=== PATIENT | female | born 1990 | race Caucasian/White ===

== ENCOUNTER → 2017-12-07 | Outpatient (CLI) | payer MEDICARE, OTHER ==
[~2017-12-07] MED LIST: ABAT250V; CLEOCIN VAG; Cleocin HCl150 MG PO; DIPH12.5EL MT; GI COCKTAIL PO; HYDR1TAB94 PO; LEVFLO500 PO; LIDO2L PO; Lacri-Lube S.O3.5 GM BOTHEYES; MALARONE; Miralax17 GM PO; NITR100CA PO; NYST100SU PO; Norco 5-325 Ta1 EACH PO; OXCA150; PRED5EL PO; QUET100 PO; TOBDEXOPO BOTHEYES; TOPI25C; Tylenol325 MG PO; WARF7.5 PO; [UNRECOGNIZED DRUG - OTHER] BOTHEYES; [UNRECOGNIZED DRUG - OTHER] BOTHEYES
== END | disposition home or self-care (01) ==
LOC: PLD → LAB SHORT
DX: L30.8 Other specified dermatitis (principal)
CPT/HCPCS: 88305; 88313

== ENCOUNTER 2018-01-19 21:52 | Emergency (ER) | payer MEDICARE, OTHER ==
[~2018-01-19] VITALS: Ht 170.2 cm; Wt 104.3 kg
[~2018-01-19 21:52] MED LIST changes: -Cleocin HCl150 MG PO; -NITR100CA PO
[2018-01-19 22:45] LABS: BASOPHILS ABSOLUTE AUTO 0.01 K/mm3 (0.00-0.23); BASOPHILS PERCENT AUTO 0 % (0-2); EOSINOPHILS PERCENT AUTO 0 % (0-6); Hematocrit 45.5 % (33.0-51.0); Hemoglobin 14.6 g/dL (11.5-16.0); IMMATURE GRAN ABSOLUTE AUTO 0.03 K/mm3 (0.00-0.10); IMMATURE GRAN PERCENT AUTO 0 % (0-1); LYMPHOCYTES ABSOLUTE AUTO 0.89 K/mm3 (0.84-5.20); LYMPHOCYTES PERCENT AUTO 10 % (21-46); MONOCYTES PERCENT AUTO 4 % (4-13); Mean Corpuscular HGB 29.1 pg (26.0-34.0); Mean Corpuscular HGB Conc 32.1 g/dL (31.5-36.5); Mean Corpuscular Volume 91 fL (80-100); Mean Platelet Volume 9.2 fL (9.1-12.4); NEUTROPHILS ABSOLUTE AUTO 7.96 K/mm3 (1.96-9.15); NEUTROPHILS PERCENT AUTO 86 % (41-73); Platelet Count 291 K/mm3 (150-400); RDW Coefficient Variation 14.8 % (11.7-14.2); RDW Standard Deviation 49.2 fL (35.1-46.3); Red Blood Cell Count 5.02 M/mm3 (3.80-5.20); White Blood Cell Count 9.29 K/mm3 (4.00-11.30)
[2018-01-19 22:47] LABS: Influenza A Negative (NEGATIVE); Influenza B Negative (NEGATIVE)
[2018-01-19 23:06] LABS: Alanine Aminotransfer (ALT/SGP 17 U/L (12-78); Albumin, Blood 3.6 g/dL (3.4-5.0); Albumin/Globulin Ratio 0.7 (0.8-1.8); Alk Phos 66 U/L (50-136); Anion Gap 6 mmol/L (6-16); Aspartate Aminotrans (AST/SGOT 17 U/L (12-37); Bilirubin, Total 0.7 mg/dL (0.1-1.0); Blood Urea Nitrogen 7 mg/dL (8-24); Bun/Creatinine Ratio 11.3 (12.0-20.0); CO2, Blood 28 mmol/L (21-32); Calcium, Blood 8.8 mg/dL (8.5-10.1); Chloride, Blood 99 mmol/L (98-108); Creatinine, Blood 0.62 mg/dL (0.40-1.00); Globulin, Blood 5.4 g/dL (2.2-4.0); Glomerular Filtration Rate >60 (60-); Glucose, Blood 85 mg/dL (70-99); Potassium, Blood 3.9 mmol/L (3.5-5.5); Sodium, Blood 133 mmol/L (136-145)
[2018-01-20 00:21] LABS: Source, Urine Clean Catch
[2018-01-20 00:25] LABS: Bilirubin, Urine Neg (Neg); Blood, Urine Neg (Neg); Glucose Qualitative, Urine Neg (Neg); Ketones, Urine Neg (Neg); Leukocyte Esterase, Urine 3+ (Neg); Nitrite, Urine Pos (Neg); Protein, Urine Neg (Neg); Urobilinogen, Urine NORM (Normal)
[2018-01-20 00:26] LABS: Appearance, Urine Hazy (Clear); Color, Urine Yellow (P-Yellow)
[2018-01-20 00:30] LABS: Bacteria Many /hpf; Red Blood Cells, Urine Not Seen /hpf (0-2); Squamous Epithelial Cells Rare /hpf (Few); White Blood Cells, Urine 50-100 /hpf (0-5)
[2018-01-20] MEDS ORDERED: NITR100CA PO (00:45)
[2018-05-14] MEDS ORDERED: Cleocin HCl150 MG PO (23:53)
== END 2018-01-20 01:42 | disposition home or self-care (01) ==
LOC: ER 21:52
PROVIDERS: Emergency Medicine
DX: N39.0 Urinary tract infection, site not specified (principal); F31.9 Bipolar disorder, unspecified; F41.9 Anxiety disorder, unspecified; F17.210 Nicotine dependence, cigarettes, uncomplicated; Z88.8 Allergy status to other drugs, medicaments and biological substances; Z88.0 Allergy status to penicillin; Z88.1 Allergy status to other antibiotic agents; Z88.2 Allergy status to sulfonamides; Z79.01 Long term (current) use of anticoagulants; Z79.899 Other long term (current) drug therapy; Z79.52 Long term (current) use of systemic steroids; Z86.711 Personal history of pulmonary embolism; Z86.718 Personal history of other venous thrombosis and embolism
CPT/HCPCS: 36415; 71046; 80053; 81001; 81025; 85025; 87077; 87086; 87186; 87804; 99283; J7030

== ENCOUNTER → 2018-01-24 | Outpatient (CLI) | payer MEDICARE, OTHER ==
[~2018-01-24] MED LIST changes: +Cleocin HCl150 MG PO; +NITR100CA PO
[2018-01-26 11:26] LABS: HPV Genotype 16 Not Detected (NOTDET); HPV Genotype 18 Not Detected (NOTDET)
[2018-02-01 12:42] LABS: HPV High Risk Other Detected (NOTDET)
== END | disposition home or self-care (01) ==
LOC: OLS 15:50
PROVIDERS: Obstetrics & Gynecology Gynecology
DX: Z12.4 Encounter for screening for malignant neoplasm of cervix (principal); R87.810 Cervical high risk human papillomavirus (HPV) DNA test positive; R87.89 Other abnormal findings in specimens from female genital organs
CPT/HCPCS: 87624; G0123

== ENCOUNTER → 2019-02-15 | Outpatient (CLI) | payer MEDICARE ==
[~2019-02-15] MED LIST changes: +BUPR150ER PO; +CLON.1 PO; +FOLI1 PO; +METTREX2.5 PO; +PRED5 PO
== END | disposition home or self-care (01) ==
LOC: LAB 10:07 → LAB SHORT 10:07
DX: N75.1 Abscess of Bartholin's gland (principal)
CPT/HCPCS: 87070; 87205

== ENCOUNTER 2022-09-28 22:40 | Emergency (ER) | payer OTHER ==
[~2022-09-28] VITALS: Ht 170.2 cm; Wt 86.2 kg
[2022-09-29 02:58] LABS: International Normalized Ratio 1.08; Prothrombin Time Results 11.3 Sec (9.7-11.5)
[2022-09-29] MEDS ORDERED: IMITREX25 MG PO (06:20)
== END 2022-09-29 06:34 | disposition home or self-care (01) ==
LOC: ER 22:40
PROVIDERS: Student in an Organized Health Care Education/Training Program
DX: R51.9 Headache, unspecified (principal); F17.210 Nicotine dependence, cigarettes, uncomplicated; Z88.8 Allergy status to other drugs, medicaments and biological substances; Z88.0 Allergy status to penicillin; Z88.1 Allergy status to other antibiotic agents; Z88.2 Allergy status to sulfonamides; Z79.899 Other long term (current) drug therapy; Z79.01 Long term (current) use of anticoagulants; Z86.711 Personal history of pulmonary embolism; Z86.718 Personal history of other venous thrombosis and embolism
CPT/HCPCS: 36415; 70470; 85610; J1790; J1885; J2765; Q9967

== ENCOUNTER → 2024-09-25 | Outpatient (CLI) | payer OTHER ==
[~2024-09-25] MED LIST changes: +IMITREX25 MG PO
[2024-09-27 22:39] LABS: APTIMA MEDIA TYPE Unisex Swab; C. TRACHOMATIS BY TMA Negative (Negative); N. GONORRHOEAE BY TMA Negative (Negative); SPECIMEN SOURCE Cervical
== END ==
LOC: LAB 11:22 → LAB SHORT 11:22
PROVIDERS: Advanced Practice Midwife
DX: Z11.3 Encounter for screening for infections with a predominantly sexual mode of transmission (principal)
CPT/HCPCS: 87491; 87591

== ENCOUNTER → 2024-12-12 | Outpatient (CLI) | payer OTHER | LOC: LAB SHORT 18:54 → LAB 18:54 | DX: S81.802A Unspecified open wound, left lower leg, initial encounter (principal) | CPT/HCPCS: 87070; 87075; 87205 ==

== ENCOUNTER 2025-01-13 02:11 | Day surgery (SDC) | payer OTHER ==
[2025-01-13] MEDS ORDERED: Lidocaine HCl 4% Cream 5 GM ONE (08:23)
== END 2025-01-13 23:00 | disposition home or self-care (01) ==
LOC: WOUND 02:11
DX: I87.332 Chronic venous hypertension (idiopathic) with ulcer and inflammation of left lower extremity (principal); L97.822 Non-pressure chronic ulcer of other part of left lower leg with fat layer exposed; I87.2 Venous insufficiency (chronic) (peripheral); I73.9 Peripheral vascular disease, unspecified; M06.9 Rheumatoid arthritis, unspecified; K21.9 Gastro-esophageal reflux disease without esophagitis; F17.200 Nicotine dependence, unspecified, uncomplicated; Z88.0 Allergy status to penicillin; Z88.2 Allergy status to sulfonamides; Z88.1 Allergy status to other antibiotic agents; Z88.8 Allergy status to other drugs, medicaments and biological substances; F31.9 Bipolar disorder, unspecified
CPT/HCPCS: A6213; A9270; G0463

== ENCOUNTER 2025-01-20 01:52 | Day surgery (SDC) | payer OTHER ==
[2025-01-20] MEDS ORDERED: Lidocaine HCl 4% Cream 5 GM ONE (14:40)
== END 2025-01-20 23:23 | disposition home or self-care (01) ==
LOC: WOUND 01:52
DX: I87.312 Chronic venous hypertension (idiopathic) with ulcer of left lower extremity (principal); L97.822 Non-pressure chronic ulcer of other part of left lower leg with fat layer exposed; I87.2 Venous insufficiency (chronic) (peripheral); I73.9 Peripheral vascular disease, unspecified; Z72.0 Tobacco use
CPT/HCPCS: A6213; A9270

== ENCOUNTER 2025-01-29 08:00 | Day surgery (SDC) | payer OTHER ==
[2025-01-29] MEDS ORDERED: Lidocaine HCl 4% Cream 5 GM ONE (08:44)
== END 2025-01-29 23:00 | disposition home or self-care (01) ==
LOC: WOUND 08:00
DX: I87.332 Chronic venous hypertension (idiopathic) with ulcer and inflammation of left lower extremity (principal); L97.823 Non-pressure chronic ulcer of other part of left lower leg with necrosis of muscle; I74.3 Embolism and thrombosis of arteries of the lower extremities; I87.2 Venous insufficiency (chronic) (peripheral); Z72.0 Tobacco use
CPT/HCPCS: A6213; A9270

== ENCOUNTER 2025-02-05 01:39 | Day surgery (SDC) | payer OTHER ==
[2025-02-05] MEDS ORDERED: Lidocaine HCl 4% Cream 5 GM ONE (10:51)
== END 2025-02-05 23:00 | disposition home or self-care (01) ==
LOC: WOUND 01:39
DX: I87.312 Chronic venous hypertension (idiopathic) with ulcer of left lower extremity (principal); L97.822 Non-pressure chronic ulcer of other part of left lower leg with fat layer exposed; I73.9 Peripheral vascular disease, unspecified; I87.2 Venous insufficiency (chronic) (peripheral); M06.9 Rheumatoid arthritis, unspecified; Z72.0 Tobacco use
CPT/HCPCS: A6213; A9270

== ENCOUNTER → 2025-02-11 | Day surgery (SDC) | payer OTHER ==
[~2025-02-11] MED LIST changes: +Lidocaine HCl 4% Cream 5 GM ONE
== END ==
LOC: WOUND 02:18
DX: I87.312 Chronic venous hypertension (idiopathic) with ulcer of left lower extremity (principal); L97.823 Non-pressure chronic ulcer of other part of left lower leg with necrosis of muscle; I73.9 Peripheral vascular disease, unspecified; I87.2 Venous insufficiency (chronic) (peripheral); Z72.0 Tobacco use
CPT/HCPCS: A6213; A9270

== ENCOUNTER → 2025-02-25 | Day surgery (SDC) | payer OTHER | LOC: WOUND 04:29 | DX: I87.333 Chronic venous hypertension (idiopathic) with ulcer and inflammation of bilateral lower extremity (principal); L97.823 Non-pressure chronic ulcer of other part of left lower leg with necrosis of muscle; I74.3 Embolism and thrombosis of arteries of the lower extremities; I73.9 Peripheral vascular disease, unspecified; I87.2 Venous insufficiency (chronic) (peripheral); Z72.0 Tobacco use | CPT/HCPCS: A6213; A9270 ==

== ENCOUNTER 2025-03-04 03:35 | Day surgery (SDC) | payer OTHER ==
[~2025-03-04 03:35] MED LIST changes: -Lidocaine HCl 4% Cream 5 GM ONE
[2025-03-04] MEDS ORDERED: Lidocaine HCl 4% Cream 5 GM ONE (09:49)
== END 2025-03-04 23:00 | disposition home or self-care (01) ==
LOC: WOUND 03:35
DX: I87.332 Chronic venous hypertension (idiopathic) with ulcer and inflammation of left lower extremity (principal); L97.823 Non-pressure chronic ulcer of other part of left lower leg with necrosis of muscle; I70.248 Atherosclerosis of native arteries of left leg with ulceration of other part of lower leg; I74.3 Embolism and thrombosis of arteries of the lower extremities; I87.2 Venous insufficiency (chronic) (peripheral); Z72.0 Tobacco use
CPT/HCPCS: A6213; A9270

== ENCOUNTER → 2025-03-06 | Outpatient (CLI) | payer OTHER | LOC: LAB SHORT 15:03 → LAB 15:03 | DX: L97.922 Non-pressure chronic ulcer of unspecified part of left lower leg with fat layer exposed (principal) | CPT/HCPCS: 87070; 87075; 87076; 87077; 87185; 87186; 87205 ==

== ENCOUNTER 2025-03-11 03:11 | Day surgery (SDC) | payer OTHER ==
[2025-03-11] MEDS ORDERED: Lidocaine HCl 4% Cream 5 GM ONE ×2 (10:58→11:07)
[2025-03-12] MEDS ORDERED: TRAM50 PO (16:15)
[2025-03-12] MEDS ORDERED: TOBRAMYCIN IV (16:15)
[2025-03-12] MEDS ORDERED: Pentoxifylline400 MG PO (16:17)
== END 2025-03-11 23:38 | disposition home or self-care (01) ==
LOC: WOUND 03:11
DX: I70.248 Atherosclerosis of native arteries of left leg with ulceration of other part of lower leg (principal); I87.332 Chronic venous hypertension (idiopathic) with ulcer and inflammation of left lower extremity; L97.823 Non-pressure chronic ulcer of other part of left lower leg with necrosis of muscle; I87.2 Venous insufficiency (chronic) (peripheral); Z86.718 Personal history of other venous thrombosis and embolism; Z88.0 Allergy status to penicillin; Z88.1 Allergy status to other antibiotic agents; Z88.2 Allergy status to sulfonamides
CPT/HCPCS: A6213; A9270

== ENCOUNTER 2025-03-12 02:09 | Day surgery (SDC) | payer OTHER ==
[2025-03-12 16:10] VITALS: BP 116/68
[2025-03-12] MEDS ORDERED: TRAM50 PO (16:15)
[2025-03-12] MEDS ORDERED: TOBRAMYCIN IV (16:15)
[2025-03-12] MEDS ORDERED: Pentoxifylline400 MG PO (16:17)
== END 2025-03-12 16:40 | disposition home or self-care (01) ==
LOC: ATC 02:09
DX: I87.332 Chronic venous hypertension (idiopathic) with ulcer and inflammation of left lower extremity (principal); L97.823 Non-pressure chronic ulcer of other part of left lower leg with necrosis of muscle; I87.2 Venous insufficiency (chronic) (peripheral); Z88.0 Allergy status to penicillin; Z88.2 Allergy status to sulfonamides; Z88.8 Allergy status to other drugs, medicaments and biological substances; Z79.01 Long term (current) use of anticoagulants; Z79.899 Other long term (current) drug therapy
CPT/HCPCS: 96365; J3260

== ENCOUNTER 2025-03-13 01:22 | Day surgery (SDC) | payer OTHER ==
[~2025-03-13 01:22] MED LIST changes: +Pentoxifylline400 MG PO; +TOBRAMYCIN IV; +TRAM50 PO
[2025-03-13 15:36] VITALS: BP 131/80
== END 2025-03-13 16:08 | disposition home or self-care (01) ==
LOC: ATC 01:22
DX: I87.322 Chronic venous hypertension (idiopathic) with inflammation of left lower extremity (principal); L97.823 Non-pressure chronic ulcer of other part of left lower leg with necrosis of muscle
CPT/HCPCS: 96365; J3260

== ENCOUNTER 2025-03-14 02:19 | Day surgery (SDC) | payer OTHER ==
[~2025-03-14] VITALS: Ht 170.2 cm; Wt 106.8 kg
[2025-03-14 15:40] VITALS: BP 114/77
[2025-03-14] MEDS ORDERED: TOBRAMYCIN SULFATE IV SCH (16:00)
[2025-03-14] MEDS ORDERED: NS IV SCH (16:00)
== END 2025-03-14 17:07 | disposition home or self-care (01) ==
LOC: ATC 02:19
DX: I87.322 Chronic venous hypertension (idiopathic) with inflammation of left lower extremity (principal); L97.823 Non-pressure chronic ulcer of other part of left lower leg with necrosis of muscle; I70.202 Unspecified atherosclerosis of native arteries of extremities, left leg; Z72.0 Tobacco use; Z88.0 Allergy status to penicillin; Z88.2 Allergy status to sulfonamides; Z88.8 Allergy status to other drugs, medicaments and biological substances
CPT/HCPCS: 96365; J3260

== ENCOUNTER 2025-03-15 04:40 | Day surgery (SDC) | payer OTHER ==
[~2025-03-15] VITALS: Ht 170.2 cm; Wt 106.8 kg
[2025-03-15 17:07] LABS: Creatinine, Blood 0.57 mg/dL (0.40-1.00); Tobramycin, Trough <0.3 ug/mL (0.0-1.9)
[2025-03-15] MEDS ORDERED: TOBRAMYCIN SULFATE IV SCH (17:20)
[2025-03-15] MEDS ORDERED: NS IV SCH (17:20)
[2025-03-15 17:39] VITALS: BP 123/75
== END 2025-03-15 23:00 | disposition home or self-care (01) ==
LOC: ATC 04:40
PROVIDERS: Surgery
DX: I87.322 Chronic venous hypertension (idiopathic) with inflammation of left lower extremity (principal); L97.823 Non-pressure chronic ulcer of other part of left lower leg with necrosis of muscle; I73.9 Peripheral vascular disease, unspecified; Z72.0 Tobacco use; Z88.0 Allergy status to penicillin; Z88.2 Allergy status to sulfonamides; Z88.8 Allergy status to other drugs, medicaments and biological substances
CPT/HCPCS: 80200; 82565; 96374; J3260

== ENCOUNTER 2025-03-16 00:27 | Day surgery (SDC) | payer OTHER ==
[2025-03-16] MEDS ORDERED: TOBRAMYCIN SULFATE IV SCH (06:00)
[2025-03-16] MEDS ORDERED: NS IV SCH (06:00)
[2025-03-16 16:13] VITALS: BP 127/83
== END 2025-03-16 16:45 | disposition home or self-care (01) ==
LOC: ATC 00:27
DX: L97.823 Non-pressure chronic ulcer of other part of left lower leg with necrosis of muscle (principal); I87.322 Chronic venous hypertension (idiopathic) with inflammation of left lower extremity; Z79.01 Long term (current) use of anticoagulants; Z79.52 Long term (current) use of systemic steroids; Z79.899 Other long term (current) drug therapy; Z88.0 Allergy status to penicillin; Z88.1 Allergy status to other antibiotic agents; Z88.2 Allergy status to sulfonamides; Z88.8 Allergy status to other drugs, medicaments and biological substances
CPT/HCPCS: 96365; J3260

== ENCOUNTER 2025-03-17 04:19 | Day surgery (SDC) | payer OTHER ==
[2025-03-17] MEDS ORDERED: TOBRAMYCIN SULFATE IV SCH (06:00)
[2025-03-17] MEDS ORDERED: NS IV SCH (06:00)
[2025-03-17 15:44] VITALS: BP 129/80
== END 2025-03-17 16:22 | disposition home or self-care (01) ==
LOC: ATC 04:19
DX: I87.332 Chronic venous hypertension (idiopathic) with ulcer and inflammation of left lower extremity (principal); L97.823 Non-pressure chronic ulcer of other part of left lower leg with necrosis of muscle; L97.822 Non-pressure chronic ulcer of other part of left lower leg with fat layer exposed; Z88.0 Allergy status to penicillin; Z88.2 Allergy status to sulfonamides; Z88.8 Allergy status to other drugs, medicaments and biological substances; Z79.01 Long term (current) use of anticoagulants; Z79.899 Other long term (current) drug therapy
CPT/HCPCS: 96365; J3260

== ENCOUNTER 2025-03-18 02:41 | Day surgery (SDC) | payer OTHER ==
[2025-03-18 16:28] VITALS: BP 127/78
[2025-03-18 17:05] LABS: Creatinine, Blood 0.83 mg/dL (0.40-1.00); Tobramycin, Trough <0.3 ug/mL (0.0-1.9)
[2025-03-18] MEDS ORDERED: TOBRAMYCIN SULFATE IV SCH (17:15)
[2025-03-18] MEDS ORDERED: NS IV SCH (17:15)
== END 2025-03-18 18:14 | disposition home or self-care (01) ==
LOC: ATC 02:41
PROVIDERS: Surgery
DX: I87.332 Chronic venous hypertension (idiopathic) with ulcer and inflammation of left lower extremity (principal); L97.823 Non-pressure chronic ulcer of other part of left lower leg with necrosis of muscle; I87.2 Venous insufficiency (chronic) (peripheral); I87.322 Chronic venous hypertension (idiopathic) with inflammation of left lower extremity; I70.248 Atherosclerosis of native arteries of left leg with ulceration of other part of lower leg; Z79.01 Long term (current) use of anticoagulants; Z79.52 Long term (current) use of systemic steroids; Z79.899 Other long term (current) drug therapy; Z88.0 Allergy status to penicillin; Z88.1 Allergy status to other antibiotic agents; Z88.2 Allergy status to sulfonamides; Z88.8 Allergy status to other drugs, medicaments and biological substances; Z95.820 Peripheral vascular angioplasty status with implants and grafts; Z72.0 Tobacco use
CPT/HCPCS: 80200; 82565; 96365; A6213; A9270; J3260

== ENCOUNTER 2025-03-19 02:33 | Day surgery (SDC) | payer OTHER ==
[2025-03-19] MEDS ORDERED: NS IV SCH (06:00)
[2025-03-19] MEDS ORDERED: TOBRAMYCIN SULFATE IV SCH (06:00)
[2025-03-19 15:47] VITALS: BP 119/80
== END 2025-03-19 16:29 | disposition home or self-care (01) ==
LOC: ATC 02:33
DX: I87.322 Chronic venous hypertension (idiopathic) with inflammation of left lower extremity (principal); L97.823 Non-pressure chronic ulcer of other part of left lower leg with necrosis of muscle; I73.9 Peripheral vascular disease, unspecified; Z72.0 Tobacco use; Z88.0 Allergy status to penicillin; Z88.2 Allergy status to sulfonamides; Z88.1 Allergy status to other antibiotic agents; Z88.8 Allergy status to other drugs, medicaments and biological substances
CPT/HCPCS: 96365; J3260

== ENCOUNTER 2025-03-20 02:17 | Day surgery (SDC) | payer OTHER ==
[2025-03-20] MEDS ORDERED: NS IV SCH (06:00)
[2025-03-20] MEDS ORDERED: TOBRAMYCIN SULFATE IV SCH (06:00)
[2025-03-20 15:32] VITALS: BP 132/98
== END 2025-03-20 16:09 | disposition home or self-care (01) ==
LOC: ATC 02:17
DX: I87.332 Chronic venous hypertension (idiopathic) with ulcer and inflammation of left lower extremity (principal); L97.823 Non-pressure chronic ulcer of other part of left lower leg with necrosis of muscle; I70.248 Atherosclerosis of native arteries of left leg with ulceration of other part of lower leg; Z88.0 Allergy status to penicillin; Z88.2 Allergy status to sulfonamides; Z88.1 Allergy status to other antibiotic agents; Z88.8 Allergy status to other drugs, medicaments and biological substances; Z79.01 Long term (current) use of anticoagulants; Z79.899 Other long term (current) drug therapy
CPT/HCPCS: 96365; J3260

== ENCOUNTER 2025-03-21 03:52 | Day surgery (SDC) | payer OTHER ==
[~2025-03-21 03:52] MED LIST changes: +NS IV SCH; +TOBRAMYCIN SULFATE IV SCH
[2025-03-21 15:30] VITALS: BP 132/86
== END 2025-03-21 16:05 | disposition home or self-care (01) ==
LOC: ATC 03:52
DX: I87.332 Chronic venous hypertension (idiopathic) with ulcer and inflammation of left lower extremity (principal); L97.823 Non-pressure chronic ulcer of other part of left lower leg with necrosis of muscle; Z88.0 Allergy status to penicillin; Z88.2 Allergy status to sulfonamides; Z88.8 Allergy status to other drugs, medicaments and biological substances; Z79.01 Long term (current) use of anticoagulants; Z79.899 Other long term (current) drug therapy; I70.248 Atherosclerosis of native arteries of left leg with ulceration of other part of lower leg; L97.822 Non-pressure chronic ulcer of other part of left lower leg with fat layer exposed; I74.3 Embolism and thrombosis of arteries of the lower extremities; Z72.0 Tobacco use
CPT/HCPCS: 96365; A6213; A9270; J3260

== ENCOUNTER 2025-03-25 01:23 | Day surgery (SDC) | payer OTHER ==
[~2025-03-25 01:23] MED LIST changes: -NS IV SCH; -TOBRAMYCIN SULFATE IV SCH
== END 2025-03-25 23:00 | disposition home or self-care (01) ==
LOC: HBO 01:23
DX: I87.332 Chronic venous hypertension (idiopathic) with ulcer and inflammation of left lower extremity (principal); I70.248 Atherosclerosis of native arteries of left leg with ulceration of other part of lower leg; L97.823 Non-pressure chronic ulcer of other part of left lower leg with necrosis of muscle; I74.3 Embolism and thrombosis of arteries of the lower extremities; I87.2 Venous insufficiency (chronic) (peripheral); Z72.0 Tobacco use; Z88.0 Allergy status to penicillin; Z88.1 Allergy status to other antibiotic agents; Z88.2 Allergy status to sulfonamides; Z88.8 Allergy status to other drugs, medicaments and biological substances
CPT/HCPCS: G0277

== ENCOUNTER 2025-03-25 01:25 | Day surgery (SDC) | payer OTHER ==
[2025-03-25] MEDS ORDERED: NS IV SCH (07:00)
[2025-03-25] MEDS ORDERED: TOBRAMYCIN SULFATE IV SCH (07:00)
[2025-03-25 17:16] VITALS: BP 120/86
== END 2025-03-25 17:55 | disposition home or self-care (01) ==
LOC: ATC 01:25
DX: I87.332 Chronic venous hypertension (idiopathic) with ulcer and inflammation of left lower extremity (principal); I70.248 Atherosclerosis of native arteries of left leg with ulceration of other part of lower leg; L97.823 Non-pressure chronic ulcer of other part of left lower leg with necrosis of muscle; L97.822 Non-pressure chronic ulcer of other part of left lower leg with fat layer exposed
CPT/HCPCS: 96365; J3260

== ENCOUNTER 2025-03-26 06:59 | Day surgery (SDC) | payer OTHER | END 2025-03-26 23:00 | disposition home or self-care (01) | LOC: HBO 06:59 | DX: I70.248 Atherosclerosis of native arteries of left leg with ulceration of other part of lower leg (principal); I87.312 Chronic venous hypertension (idiopathic) with ulcer of left lower extremity; L97.823 Non-pressure chronic ulcer of other part of left lower leg with necrosis of muscle; I87.2 Venous insufficiency (chronic) (peripheral); Z72.0 Tobacco use | CPT/HCPCS: G0277 ==

== ENCOUNTER 2025-03-26 07:00 | Day surgery (SDC) | payer OTHER ==
[~2025-03-26 07:00] MED LIST changes: +NS IV SCH; +TOBRAMYCIN SULFATE IV SCH
[2025-03-26 16:30] VITALS: BP 137/81
== END 2025-03-26 17:22 | disposition home or self-care (01) ==
LOC: ATC 07:00
DX: I87.322 Chronic venous hypertension (idiopathic) with inflammation of left lower extremity (principal); L97.823 Non-pressure chronic ulcer of other part of left lower leg with necrosis of muscle; Z72.0 Tobacco use
CPT/HCPCS: 96365; C1751; J3260

== ENCOUNTER 2025-04-08 03:47 | Day surgery (SDC) | payer OTHER ==
[~2025-04-08 03:47] MED LIST changes: -NS IV SCH; -TOBRAMYCIN SULFATE IV SCH
== END 2025-04-08 23:03 | disposition home or self-care (01) ==
LOC: HBO 03:47
DX: I70.248 Atherosclerosis of native arteries of left leg with ulceration of other part of lower leg (principal); I87.332 Chronic venous hypertension (idiopathic) with ulcer and inflammation of left lower extremity; L97.823 Non-pressure chronic ulcer of other part of left lower leg with necrosis of muscle; I87.2 Venous insufficiency (chronic) (peripheral); Z86.718 Personal history of other venous thrombosis and embolism; Z72.0 Tobacco use; Z95.820 Peripheral vascular angioplasty status with implants and grafts
CPT/HCPCS: A6213; A9270; G0277

== ENCOUNTER 2025-04-11 02:41 | Day surgery (SDC) | payer OTHER | END 2025-04-11 23:00 | disposition home or self-care (01) | LOC: HBO 02:41 | DX: I70.248 Atherosclerosis of native arteries of left leg with ulceration of other part of lower leg (principal); I87.332 Chronic venous hypertension (idiopathic) with ulcer and inflammation of left lower extremity; L97.823 Non-pressure chronic ulcer of other part of left lower leg with necrosis of muscle; I87.2 Venous insufficiency (chronic) (peripheral); Z72.0 Tobacco use; Z86.718 Personal history of other venous thrombosis and embolism | CPT/HCPCS: G0277 ==

== ENCOUNTER 2025-04-24 03:35 | Day surgery (SDC) | payer OTHER | END 2025-04-24 23:00 | disposition home or self-care (01) | LOC: HBO 03:35 | DX: I70.248 Atherosclerosis of native arteries of left leg with ulceration of other part of lower leg (principal); L97.825 Non-pressure chronic ulcer of other part of left lower leg with muscle involvement without evidence of necrosis; I87.312 Chronic venous hypertension (idiopathic) with ulcer of left lower extremity; I87.322 Chronic venous hypertension (idiopathic) with inflammation of left lower extremity; I74.3 Embolism and thrombosis of arteries of the lower extremities; I87.2 Venous insufficiency (chronic) (peripheral); Z72.0 Tobacco use | CPT/HCPCS: G0277 ==

== ENCOUNTER 2025-05-05 08:00 | Day surgery (SDC) | payer OTHER | END 2025-05-05 23:00 | disposition home or self-care (01) | LOC: HBO 08:00 | DX: I87.312 Chronic venous hypertension (idiopathic) with ulcer of left lower extremity (principal); L97.825 Non-pressure chronic ulcer of other part of left lower leg with muscle involvement without evidence of necrosis; I70.248 Atherosclerosis of native arteries of left leg with ulceration of other part of lower leg; I74.3 Embolism and thrombosis of arteries of the lower extremities; I87.2 Venous insufficiency (chronic) (peripheral); Z72.0 Tobacco use | CPT/HCPCS: G0277 ==

== ENCOUNTER 2025-05-06 02:48 | Day surgery (SDC) | payer OTHER | END 2025-05-06 23:00 | disposition home or self-care (01) | LOC: HBO 02:48 | DX: I70.248 Atherosclerosis of native arteries of left leg with ulceration of other part of lower leg (principal); I87.332 Chronic venous hypertension (idiopathic) with ulcer and inflammation of left lower extremity; L97.825 Non-pressure chronic ulcer of other part of left lower leg with muscle involvement without evidence of necrosis; I87.2 Venous insufficiency (chronic) (peripheral); Z72.0 Tobacco use; Z86.718 Personal history of other venous thrombosis and embolism; Z88.0 Allergy status to penicillin; Z88.1 Allergy status to other antibiotic agents; Z88.2 Allergy status to sulfonamides; Z88.8 Allergy status to other drugs, medicaments and biological substances | CPT/HCPCS: A9270; G0277 ==

== ENCOUNTER 2025-05-06 02:55 | Day surgery (SDC) | payer OTHER ==
[2025-05-06] MEDS ORDERED: Lidocaine HCl 4% Cream 5 GM ONE (10:59)
== END 2025-05-06 23:00 | disposition home or self-care (01) ==
LOC: WOUND 02:55
DX: I70.248 Atherosclerosis of native arteries of left leg with ulceration of other part of lower leg (principal); I87.332 Chronic venous hypertension (idiopathic) with ulcer and inflammation of left lower extremity; L97.825 Non-pressure chronic ulcer of other part of left lower leg with muscle involvement without evidence of necrosis; I87.2 Venous insufficiency (chronic) (peripheral); Z86.718 Personal history of other venous thrombosis and embolism; Z72.0 Tobacco use; Z88.0 Allergy status to penicillin; Z88.1 Allergy status to other antibiotic agents; Z88.2 Allergy status to sulfonamides; Z88.8 Allergy status to other drugs, medicaments and biological substances
CPT/HCPCS: A9270

== ENCOUNTER 2025-05-07 03:13 | Day surgery (SDC) | payer OTHER | END 2025-05-07 23:00 | disposition home or self-care (01) | LOC: HBO 03:13 | DX: I70.248 Atherosclerosis of native arteries of left leg with ulceration of other part of lower leg (principal); I87.312 Chronic venous hypertension (idiopathic) with ulcer of left lower extremity; I87.322 Chronic venous hypertension (idiopathic) with inflammation of left lower extremity; L97.825 Non-pressure chronic ulcer of other part of left lower leg with muscle involvement without evidence of necrosis; I74.3 Embolism and thrombosis of arteries of the lower extremities; I87.2 Venous insufficiency (chronic) (peripheral); Z72.0 Tobacco use | CPT/HCPCS: G0277 ==

== ENCOUNTER 2025-05-12 04:52 | Day surgery (SDC) | payer OTHER | END 2025-05-12 23:00 | disposition home or self-care (01) | LOC: HBO 04:52 | DX: I70.248 Atherosclerosis of native arteries of left leg with ulceration of other part of lower leg (principal); I87.332 Chronic venous hypertension (idiopathic) with ulcer and inflammation of left lower extremity; L97.825 Non-pressure chronic ulcer of other part of left lower leg with muscle involvement without evidence of necrosis; I87.2 Venous insufficiency (chronic) (peripheral); Z86.718 Personal history of other venous thrombosis and embolism; Z72.0 Tobacco use; Z88.0 Allergy status to penicillin; Z88.1 Allergy status to other antibiotic agents; Z88.2 Allergy status to sulfonamides; Z88.8 Allergy status to other drugs, medicaments and biological substances | CPT/HCPCS: G0277 ==

== ENCOUNTER 2025-05-13 04:33 | Day surgery (SDC) | payer OTHER | END 2025-05-13 22:00 | disposition home or self-care (01) | LOC: HBO 04:33 | DX: I70.248 Atherosclerosis of native arteries of left leg with ulceration of other part of lower leg (principal); I87.332 Chronic venous hypertension (idiopathic) with ulcer and inflammation of left lower extremity; L97.825 Non-pressure chronic ulcer of other part of left lower leg with muscle involvement without evidence of necrosis; I87.2 Venous insufficiency (chronic) (peripheral); Z86.718 Personal history of other venous thrombosis and embolism; Z72.0 Tobacco use; I87.333 Chronic venous hypertension (idiopathic) with ulcer and inflammation of bilateral lower extremity; L97.823 Non-pressure chronic ulcer of other part of left lower leg with necrosis of muscle; I74.3 Embolism and thrombosis of arteries of the lower extremities | CPT/HCPCS: A9270; G0277 ==

== ENCOUNTER 2025-05-13 04:46 | Day surgery (SDC) | payer OTHER ==
[2025-05-13] MEDS ORDERED: Lidocaine HCl 4% Cream 5 GM ONE (08:57)
== END 2025-05-13 22:00 | disposition home or self-care (01) ==
LOC: WOUND 04:46
DX: I87.333 Chronic venous hypertension (idiopathic) with ulcer and inflammation of bilateral lower extremity (principal); I70.248 Atherosclerosis of native arteries of left leg with ulceration of other part of lower leg; L97.823 Non-pressure chronic ulcer of other part of left lower leg with necrosis of muscle; I74.3 Embolism and thrombosis of arteries of the lower extremities; I87.2 Venous insufficiency (chronic) (peripheral); Z72.0 Tobacco use
CPT/HCPCS: A9270

== ENCOUNTER 2025-05-14 01:59 | Day surgery (SDC) | payer OTHER | END 2025-05-14 23:00 | disposition home or self-care (01) | LOC: HBO 01:59 | DX: I70.248 Atherosclerosis of native arteries of left leg with ulceration of other part of lower leg (principal); I87.332 Chronic venous hypertension (idiopathic) with ulcer and inflammation of left lower extremity; L97.825 Non-pressure chronic ulcer of other part of left lower leg with muscle involvement without evidence of necrosis; I87.2 Venous insufficiency (chronic) (peripheral); Z86.718 Personal history of other venous thrombosis and embolism; Z72.0 Tobacco use; Z88.0 Allergy status to penicillin; Z88.1 Allergy status to other antibiotic agents; Z88.2 Allergy status to sulfonamides; Z88.8 Allergy status to other drugs, medicaments and biological substances | CPT/HCPCS: G0277 ==

== ENCOUNTER 2025-05-15 01:31 | Day surgery (SDC) | payer OTHER | END 2025-05-15 23:00 | disposition home or self-care (01) | LOC: HBO 01:31 | DX: I87.332 Chronic venous hypertension (idiopathic) with ulcer and inflammation of left lower extremity (principal); L97.825 Non-pressure chronic ulcer of other part of left lower leg with muscle involvement without evidence of necrosis; I70.248 Atherosclerosis of native arteries of left leg with ulceration of other part of lower leg; I74.3 Embolism and thrombosis of arteries of the lower extremities; I87.2 Venous insufficiency (chronic) (peripheral); Z72.0 Tobacco use | CPT/HCPCS: G0277 ==

== ENCOUNTER 2025-05-16 01:45 | Day surgery (SDC) | payer OTHER | END 2025-05-16 23:00 | disposition home or self-care (01) | LOC: HBO 01:45 | DX: I87.332 Chronic venous hypertension (idiopathic) with ulcer and inflammation of left lower extremity (principal); I70.248 Atherosclerosis of native arteries of left leg with ulceration of other part of lower leg; L97.825 Non-pressure chronic ulcer of other part of left lower leg with muscle involvement without evidence of necrosis; I74.3 Embolism and thrombosis of arteries of the lower extremities; I87.2 Venous insufficiency (chronic) (peripheral); Z72.0 Tobacco use | CPT/HCPCS: G0277 ==

== ENCOUNTER 2025-05-20 00:51 | Day surgery (SDC) | payer OTHER | END 2025-05-20 23:00 | disposition home or self-care (01) | LOC: HBO 00:51 | DX: I70.248 Atherosclerosis of native arteries of left leg with ulceration of other part of lower leg (principal); I87.332 Chronic venous hypertension (idiopathic) with ulcer and inflammation of left lower extremity; L97.825 Non-pressure chronic ulcer of other part of left lower leg with muscle involvement without evidence of necrosis; L97.823 Non-pressure chronic ulcer of other part of left lower leg with necrosis of muscle; I87.2 Venous insufficiency (chronic) (peripheral); Z86.718 Personal history of other venous thrombosis and embolism; Z72.0 Tobacco use; Z88.0 Allergy status to penicillin; Z88.1 Allergy status to other antibiotic agents; Z88.2 Allergy status to sulfonamides; Z88.8 Allergy status to other drugs, medicaments and biological substances | CPT/HCPCS: A9270; G0277 ==

== ENCOUNTER 2025-05-20 01:01 | Day surgery (SDC) | payer OTHER ==
[2025-05-20] MEDS ORDERED: Lidocaine HCl 4% Cream 5 GM ONE (08:52)
== END 2025-05-20 23:00 | disposition home or self-care (01) ==
LOC: WOUND 01:01
DX: I70.248 Atherosclerosis of native arteries of left leg with ulceration of other part of lower leg (principal); I87.332 Chronic venous hypertension (idiopathic) with ulcer and inflammation of left lower extremity; L97.823 Non-pressure chronic ulcer of other part of left lower leg with necrosis of muscle; I87.2 Venous insufficiency (chronic) (peripheral); Z86.718 Personal history of other venous thrombosis and embolism; Z72.0 Tobacco use; Z88.0 Allergy status to penicillin; Z88.1 Allergy status to other antibiotic agents; Z88.2 Allergy status to sulfonamides; Z88.8 Allergy status to other drugs, medicaments and biological substances
CPT/HCPCS: A9270

== ENCOUNTER 2025-05-21 03:45 | Day surgery (SDC) | payer OTHER | END 2025-05-21 23:00 | disposition home or self-care (01) | LOC: HBO 03:45 | DX: I70.248 Atherosclerosis of native arteries of left leg with ulceration of other part of lower leg (principal); I87.332 Chronic venous hypertension (idiopathic) with ulcer and inflammation of left lower extremity; L97.825 Non-pressure chronic ulcer of other part of left lower leg with muscle involvement without evidence of necrosis; I87.2 Venous insufficiency (chronic) (peripheral); Z86.718 Personal history of other venous thrombosis and embolism; Z72.0 Tobacco use; Z88.0 Allergy status to penicillin; Z88.1 Allergy status to other antibiotic agents; Z88.2 Allergy status to sulfonamides; Z88.8 Allergy status to other drugs, medicaments and biological substances | CPT/HCPCS: G0277 ==

== ENCOUNTER 2025-05-22 02:19 | Day surgery (SDC) | payer OTHER | END 2025-05-22 23:00 | LOC: HBO 02:19 | DX: I70.248 Atherosclerosis of native arteries of left leg with ulceration of other part of lower leg (principal); I87.332 Chronic venous hypertension (idiopathic) with ulcer and inflammation of left lower extremity; L97.825 Non-pressure chronic ulcer of other part of left lower leg with muscle involvement without evidence of necrosis; I87.2 Venous insufficiency (chronic) (peripheral); Z86.718 Personal history of other venous thrombosis and embolism; Z72.0 Tobacco use | CPT/HCPCS: G0277 ==

== ENCOUNTER 2025-05-23 06:01 | Day surgery (SDC) | payer OTHER | END 2025-05-23 23:00 | disposition home or self-care (01) | LOC: HBO 06:01 | DX: I70.248 Atherosclerosis of native arteries of left leg with ulceration of other part of lower leg (principal); I87.332 Chronic venous hypertension (idiopathic) with ulcer and inflammation of left lower extremity; L97.825 Non-pressure chronic ulcer of other part of left lower leg with muscle involvement without evidence of necrosis; I87.2 Venous insufficiency (chronic) (peripheral); Z86.718 Personal history of other venous thrombosis and embolism; Z72.0 Tobacco use; Z88.0 Allergy status to penicillin; Z88.1 Allergy status to other antibiotic agents; Z88.2 Allergy status to sulfonamides; Z88.8 Allergy status to other drugs, medicaments and biological substances | CPT/HCPCS: G0277 ==

== ENCOUNTER 2025-05-26 00:59 | Day surgery (SDC) | payer OTHER | END 2025-05-26 23:00 | disposition home or self-care (01) | LOC: HBO 00:59 | DX: I87.332 Chronic venous hypertension (idiopathic) with ulcer and inflammation of left lower extremity (principal); I70.248 Atherosclerosis of native arteries of left leg with ulceration of other part of lower leg; L97.825 Non-pressure chronic ulcer of other part of left lower leg with muscle involvement without evidence of necrosis; I74.3 Embolism and thrombosis of arteries of the lower extremities; I87.2 Venous insufficiency (chronic) (peripheral); Z72.0 Tobacco use | CPT/HCPCS: G0277 ==

== ENCOUNTER 2025-05-28 03:05 | Day surgery (SDC) | payer OTHER ==
[2025-05-28] MEDS ORDERED: Lidocaine HCl 4% Cream 5 GM ONE (12:57)
== END 2025-05-28 23:00 | disposition home or self-care (01) ==
LOC: WOUND 03:05
DX: I70.248 Atherosclerosis of native arteries of left leg with ulceration of other part of lower leg (principal); I87.332 Chronic venous hypertension (idiopathic) with ulcer and inflammation of left lower extremity; L97.822 Non-pressure chronic ulcer of other part of left lower leg with fat layer exposed; I87.2 Venous insufficiency (chronic) (peripheral); Z86.718 Personal history of other venous thrombosis and embolism; Z72.0 Tobacco use; Z88.0 Allergy status to penicillin; Z88.1 Allergy status to other antibiotic agents; Z88.2 Allergy status to sulfonamides; Z88.8 Allergy status to other drugs, medicaments and biological substances
CPT/HCPCS: A9270

== ENCOUNTER 2025-05-28 03:10 | Day surgery (SDC) | payer OTHER | END 2025-05-28 23:00 | disposition home or self-care (01) | LOC: HBO 03:10 | DX: I70.248 Atherosclerosis of native arteries of left leg with ulceration of other part of lower leg (principal); I87.332 Chronic venous hypertension (idiopathic) with ulcer and inflammation of left lower extremity; L97.825 Non-pressure chronic ulcer of other part of left lower leg with muscle involvement without evidence of necrosis; I87.2 Venous insufficiency (chronic) (peripheral); Z86.718 Personal history of other venous thrombosis and embolism; Z72.0 Tobacco use; Z88.0 Allergy status to penicillin; Z88.1 Allergy status to other antibiotic agents; Z88.2 Allergy status to sulfonamides; Z88.8 Allergy status to other drugs, medicaments and biological substances; L97.822 Non-pressure chronic ulcer of other part of left lower leg with fat layer exposed | CPT/HCPCS: A9270; G0277 ==

== ENCOUNTER 2025-05-29 03:15 | Day surgery (SDC) | payer OTHER | END 2025-05-29 23:00 | disposition home or self-care (01) | LOC: HBO 03:15 | DX: I70.248 Atherosclerosis of native arteries of left leg with ulceration of other part of lower leg (principal); I87.332 Chronic venous hypertension (idiopathic) with ulcer and inflammation of left lower extremity; L97.825 Non-pressure chronic ulcer of other part of left lower leg with muscle involvement without evidence of necrosis; I87.2 Venous insufficiency (chronic) (peripheral); Z86.718 Personal history of other venous thrombosis and embolism; Z72.0 Tobacco use; Z88.0 Allergy status to penicillin; Z88.1 Allergy status to other antibiotic agents; Z88.2 Allergy status to sulfonamides; Z88.8 Allergy status to other drugs, medicaments and biological substances | CPT/HCPCS: G0277 ==

== ENCOUNTER 2025-05-30 03:11 | Day surgery (SDC) | payer OTHER | END 2025-05-30 23:00 | disposition home or self-care (01) | LOC: HBO 03:11 | DX: I70.248 Atherosclerosis of native arteries of left leg with ulceration of other part of lower leg (principal); I87.332 Chronic venous hypertension (idiopathic) with ulcer and inflammation of left lower extremity; L97.825 Non-pressure chronic ulcer of other part of left lower leg with muscle involvement without evidence of necrosis; I87.2 Venous insufficiency (chronic) (peripheral); Z86.718 Personal history of other venous thrombosis and embolism; Z72.0 Tobacco use; Z88.0 Allergy status to penicillin; Z88.1 Allergy status to other antibiotic agents; Z88.2 Allergy status to sulfonamides; Z88.8 Allergy status to other drugs, medicaments and biological substances | CPT/HCPCS: G0277 ==

== ENCOUNTER 2025-06-02 09:58 | Day surgery (SDC) | payer OTHER ==
[2025-06-02] MEDS ORDERED: Lidocaine HCl 4% Cream 5 GM ONE (12:18)
== END 2025-06-02 23:00 | disposition home or self-care (01) ==
LOC: WOUND 09:58
DX: I87.332 Chronic venous hypertension (idiopathic) with ulcer and inflammation of left lower extremity (principal); L97.823 Non-pressure chronic ulcer of other part of left lower leg with necrosis of muscle; I70.248 Atherosclerosis of native arteries of left leg with ulceration of other part of lower leg; I74.3 Embolism and thrombosis of arteries of the lower extremities; I73.9 Peripheral vascular disease, unspecified; I87.2 Venous insufficiency (chronic) (peripheral); Z72.0 Tobacco use
CPT/HCPCS: A6213; A9270

== ENCOUNTER 2025-06-03 01:14 | Day surgery (SDC) | payer OTHER | END 2025-06-03 23:00 | disposition home or self-care (01) | LOC: HBO 01:14 | DX: I70.248 Atherosclerosis of native arteries of left leg with ulceration of other part of lower leg (principal); I87.332 Chronic venous hypertension (idiopathic) with ulcer and inflammation of left lower extremity; L97.825 Non-pressure chronic ulcer of other part of left lower leg with muscle involvement without evidence of necrosis; I87.2 Venous insufficiency (chronic) (peripheral); Z86.718 Personal history of other venous thrombosis and embolism; Z72.0 Tobacco use; Z88.0 Allergy status to penicillin; Z88.1 Allergy status to other antibiotic agents; Z88.2 Allergy status to sulfonamides; Z88.8 Allergy status to other drugs, medicaments and biological substances | CPT/HCPCS: G0277 ==

== ENCOUNTER 2025-06-05 03:40 | Day surgery (SDC) | payer OTHER | END 2025-06-05 23:00 | disposition home or self-care (01) | LOC: HBO 03:40 | DX: I87.332 Chronic venous hypertension (idiopathic) with ulcer and inflammation of left lower extremity (principal); L97.825 Non-pressure chronic ulcer of other part of left lower leg with muscle involvement without evidence of necrosis; I70.248 Atherosclerosis of native arteries of left leg with ulceration of other part of lower leg; I74.3 Embolism and thrombosis of arteries of the lower extremities; I87.2 Venous insufficiency (chronic) (peripheral); Z72.0 Tobacco use | CPT/HCPCS: G0277 ==

== ENCOUNTER 2025-06-09 00:50 | Day surgery (SDC) | payer OTHER | END 2025-06-09 23:00 | disposition home or self-care (01) | LOC: HBO 00:50 | DX: I70.248 Atherosclerosis of native arteries of left leg with ulceration of other part of lower leg (principal); I87.332 Chronic venous hypertension (idiopathic) with ulcer and inflammation of left lower extremity; L97.825 Non-pressure chronic ulcer of other part of left lower leg with muscle involvement without evidence of necrosis; I87.2 Venous insufficiency (chronic) (peripheral); Z86.718 Personal history of other venous thrombosis and embolism; Z72.0 Tobacco use; Z88.0 Allergy status to penicillin; Z88.1 Allergy status to other antibiotic agents; Z88.2 Allergy status to sulfonamides; Z88.8 Allergy status to other drugs, medicaments and biological substances | CPT/HCPCS: G0277 ==

== ENCOUNTER 2025-06-12 01:47 | Day surgery (SDC) | payer OTHER | END 2025-06-12 23:00 | disposition home or self-care (01) | LOC: HBO 01:47 | DX: I70.248 Atherosclerosis of native arteries of left leg with ulceration of other part of lower leg (principal); I87.332 Chronic venous hypertension (idiopathic) with ulcer and inflammation of left lower extremity; L97.825 Non-pressure chronic ulcer of other part of left lower leg with muscle involvement without evidence of necrosis; I87.2 Venous insufficiency (chronic) (peripheral); Z86.718 Personal history of other venous thrombosis and embolism; Z72.0 Tobacco use; Z88.0 Allergy status to penicillin; Z88.1 Allergy status to other antibiotic agents; Z88.2 Allergy status to sulfonamides; Z88.8 Allergy status to other drugs, medicaments and biological substances | CPT/HCPCS: G0277 ==

== ENCOUNTER 2025-06-16 00:37 | Day surgery (SDC) | payer OTHER | END 2025-06-16 23:00 | disposition home or self-care (01) | LOC: HBO 00:37 | DX: I74.3 Embolism and thrombosis of arteries of the lower extremities (principal); I87.332 Chronic venous hypertension (idiopathic) with ulcer and inflammation of left lower extremity; I70.248 Atherosclerosis of native arteries of left leg with ulceration of other part of lower leg; L97.825 Non-pressure chronic ulcer of other part of left lower leg with muscle involvement without evidence of necrosis; I87.2 Venous insufficiency (chronic) (peripheral); Z72.0 Tobacco use | CPT/HCPCS: G0277 ==

== ENCOUNTER 2025-06-17 04:39 | Day surgery (SDC) | payer OTHER ==
[2025-06-17] MEDS ORDERED: Lidocaine HCl 4% Cream 5 GM ONE (13:00)
== END 2025-06-17 23:00 | disposition home or self-care (01) ==
LOC: WOUND 04:39
DX: I70.248 Atherosclerosis of native arteries of left leg with ulceration of other part of lower leg (principal); L97.825 Non-pressure chronic ulcer of other part of left lower leg with muscle involvement without evidence of necrosis; I87.312 Chronic venous hypertension (idiopathic) with ulcer of left lower extremity; I87.2 Venous insufficiency (chronic) (peripheral); Z72.0 Tobacco use
CPT/HCPCS: A6213; A9270

== ENCOUNTER 2025-06-24 00:58 | Day surgery (SDC) | payer OTHER | END 2025-06-24 23:00 | disposition home or self-care (01) | LOC: HBO 00:58 | DX: I70.248 Atherosclerosis of native arteries of left leg with ulceration of other part of lower leg (principal); I87.332 Chronic venous hypertension (idiopathic) with ulcer and inflammation of left lower extremity; L97.825 Non-pressure chronic ulcer of other part of left lower leg with muscle involvement without evidence of necrosis; I87.2 Venous insufficiency (chronic) (peripheral); Z86.718 Personal history of other venous thrombosis and embolism; Z72.0 Tobacco use; Z88.0 Allergy status to penicillin; Z88.2 Allergy status to sulfonamides; Z88.1 Allergy status to other antibiotic agents; Z88.8 Allergy status to other drugs, medicaments and biological substances | CPT/HCPCS: G0277 ==

== ENCOUNTER 2025-06-25 06:44 | Day surgery (SDC) | payer OTHER | END 2025-06-25 23:00 | disposition home or self-care (01) | LOC: HBO 06:44 | DX: I70.248 Atherosclerosis of native arteries of left leg with ulceration of other part of lower leg (principal); I87.332 Chronic venous hypertension (idiopathic) with ulcer and inflammation of left lower extremity; L97.825 Non-pressure chronic ulcer of other part of left lower leg with muscle involvement without evidence of necrosis; I87.2 Venous insufficiency (chronic) (peripheral); Z86.718 Personal history of other venous thrombosis and embolism; Z72.0 Tobacco use; Z88.0 Allergy status to penicillin; Z88.1 Allergy status to other antibiotic agents; Z88.2 Allergy status to sulfonamides; Z88.8 Allergy status to other drugs, medicaments and biological substances | CPT/HCPCS: G0277 ==

== ENCOUNTER 2025-06-26 02:05 | Day surgery (SDC) | payer OTHER | END 2025-06-26 23:00 | disposition home or self-care (01) | LOC: HBO 02:05 | DX: I74.3 Embolism and thrombosis of arteries of the lower extremities (principal); I87.332 Chronic venous hypertension (idiopathic) with ulcer and inflammation of left lower extremity; L97.825 Non-pressure chronic ulcer of other part of left lower leg with muscle involvement without evidence of necrosis; I70.248 Atherosclerosis of native arteries of left leg with ulceration of other part of lower leg; I87.2 Venous insufficiency (chronic) (peripheral); Z72.0 Tobacco use; D68.61 Antiphospholipid syndrome | CPT/HCPCS: 36415; 85610; G0277 ==

== ENCOUNTER 2025-06-27 00:37 | Day surgery (SDC) | payer OTHER | END 2025-06-27 23:00 | disposition home or self-care (01) | LOC: HBO | DX: I74.3 Embolism and thrombosis of arteries of the lower extremities (principal); I70.248 Atherosclerosis of native arteries of left leg with ulceration of other part of lower leg; L97.825 Non-pressure chronic ulcer of other part of left lower leg with muscle involvement without evidence of necrosis; I87.332 Chronic venous hypertension (idiopathic) with ulcer and inflammation of left lower extremity; I87.2 Venous insufficiency (chronic) (peripheral); Z72.0 Tobacco use | CPT/HCPCS: G0277 ==

== ENCOUNTER 2025-06-27 00:49 | Day surgery (SDC) | payer OTHER ==
[2025-06-27] MEDS ORDERED: Lidocaine HCl 4% Cream 5 GM ONE (12:18)
== END 2025-06-27 23:00 | disposition home or self-care (01) ==
LOC: WOUND
DX: I87.332 Chronic venous hypertension (idiopathic) with ulcer and inflammation of left lower extremity (principal); I70.248 Atherosclerosis of native arteries of left leg with ulceration of other part of lower leg; L97.823 Non-pressure chronic ulcer of other part of left lower leg with necrosis of muscle; I74.3 Embolism and thrombosis of arteries of the lower extremities; I87.2 Venous insufficiency (chronic) (peripheral); M06.9 Rheumatoid arthritis, unspecified; Z72.0 Tobacco use
CPT/HCPCS: A6213; A9270

== ENCOUNTER 2025-07-01 01:05 | Day surgery (SDC) | payer OTHER | END 2025-07-01 23:00 | disposition home or self-care (01) | LOC: HBO 01:05 | DX: I74.3 Embolism and thrombosis of arteries of the lower extremities (principal); I70.248 Atherosclerosis of native arteries of left leg with ulceration of other part of lower leg; I87.332 Chronic venous hypertension (idiopathic) with ulcer and inflammation of left lower extremity; I87.2 Venous insufficiency (chronic) (peripheral); Z72.0 Tobacco use; L97.825 Non-pressure chronic ulcer of other part of left lower leg with muscle involvement without evidence of necrosis; M06.9 Rheumatoid arthritis, unspecified | CPT/HCPCS: A6213; A9270; G0277 ==

== ENCOUNTER 2025-07-01 03:22 | Day surgery (SDC) | payer OTHER ==
[2025-07-01] MEDS ORDERED: Lidocaine HCl 4% Cream 5 GM ONE (13:13)
== END 2025-07-01 23:00 | disposition home or self-care (01) ==
LOC: WOUND 03:22
DX: I70.248 Atherosclerosis of native arteries of left leg with ulceration of other part of lower leg (principal); L97.825 Non-pressure chronic ulcer of other part of left lower leg with muscle involvement without evidence of necrosis; I87.332 Chronic venous hypertension (idiopathic) with ulcer and inflammation of left lower extremity; I87.2 Venous insufficiency (chronic) (peripheral); M06.9 Rheumatoid arthritis, unspecified; Z72.0 Tobacco use
CPT/HCPCS: A6213; A9270

== ENCOUNTER 2025-07-02 04:17 | Day surgery (SDC) | payer OTHER | END 2025-07-02 23:00 | disposition home or self-care (01) | LOC: HBO 04:17 | DX: I74.3 Embolism and thrombosis of arteries of the lower extremities (principal); I70.248 Atherosclerosis of native arteries of left leg with ulceration of other part of lower leg; L97.825 Non-pressure chronic ulcer of other part of left lower leg with muscle involvement without evidence of necrosis; I87.312 Chronic venous hypertension (idiopathic) with ulcer of left lower extremity; I87.2 Venous insufficiency (chronic) (peripheral); Z72.0 Tobacco use | CPT/HCPCS: G0277 ==

== ENCOUNTER 2025-07-03 03:19 | Day surgery (SDC) | payer OTHER ==
[2025-07-04] MEDS ORDERED: CEFEPIME HCL2 G1 IV (14:05)
[2025-07-04] MEDS ORDERED: LORA.5 PO (14:05)
== END 2025-07-03 23:04 | disposition home or self-care (01) ==
LOC: HBO 03:19
DX: I74.3 Embolism and thrombosis of arteries of the lower extremities (principal); I87.332 Chronic venous hypertension (idiopathic) with ulcer and inflammation of left lower extremity; I70.248 Atherosclerosis of native arteries of left leg with ulceration of other part of lower leg; L97.825 Non-pressure chronic ulcer of other part of left lower leg with muscle involvement without evidence of necrosis; I87.2 Venous insufficiency (chronic) (peripheral); Z72.0 Tobacco use
CPT/HCPCS: G0277

== ENCOUNTER 2025-07-04 03:12 | Day surgery (SDC) | payer OTHER ==
[2025-07-04] MEDS ORDERED: LORA.5 PO (14:05)
[2025-07-04] MEDS ORDERED: CEFEPIME HCL2 G1 IV (14:05)
== END 2025-07-04 23:42 | disposition home or self-care (01) ==
LOC: HBO 03:12
DX: I74.3 Embolism and thrombosis of arteries of the lower extremities (principal); I70.248 Atherosclerosis of native arteries of left leg with ulceration of other part of lower leg; L97.825 Non-pressure chronic ulcer of other part of left lower leg with muscle involvement without evidence of necrosis; I87.332 Chronic venous hypertension (idiopathic) with ulcer and inflammation of left lower extremity; I87.2 Venous insufficiency (chronic) (peripheral); Z72.0 Tobacco use
CPT/HCPCS: G0277

== ENCOUNTER 2025-07-04 09:32 | Day surgery (SDC) | payer OTHER ==
[2025-07-04] MEDS ORDERED: Cefepime HCl 2,000 MG in NS 100 ML IV SCH (10:20)
[2025-07-04 11:34] VITALS: BP 141/86
[2025-07-04] MEDS ORDERED: LORA.5 PO (14:05)
[2025-07-04] MEDS ORDERED: CEFEPIME HCL2 G1 IV (14:05)
== END 2025-07-04 14:34 | disposition home or self-care (01) ==
LOC: ATC 09:32
DX: I70.248 Atherosclerosis of native arteries of left leg with ulceration of other part of lower leg (principal); I87.332 Chronic venous hypertension (idiopathic) with ulcer and inflammation of left lower extremity; L97.825 Non-pressure chronic ulcer of other part of left lower leg with muscle involvement without evidence of necrosis; I87.2 Venous insufficiency (chronic) (peripheral); Z86.718 Personal history of other venous thrombosis and embolism; Z72.0 Tobacco use; Z79.01 Long term (current) use of anticoagulants; Z79.52 Long term (current) use of systemic steroids; Z79.899 Other long term (current) drug therapy; Z88.0 Allergy status to penicillin; Z88.1 Allergy status to other antibiotic agents; Z88.2 Allergy status to sulfonamides; Z88.8 Allergy status to other drugs, medicaments and biological substances
CPT/HCPCS: 96365; J0692

== ENCOUNTER 2025-07-05 00:30 | Day surgery (SDC) | payer OTHER ==
[~2025-07-05 00:30] MED LIST changes: +CEFEPIME HCL2 G1 IV; +LORA.5 PO
[2025-07-05] MEDS ORDERED: Cefepime HCl 2,000 MG in NS 100 ML IV SCH (12:10)
[2025-07-05 13:50] VITALS: BP 124/88
== END 2025-07-05 14:28 | disposition home or self-care (01) ==
LOC: ATC 00:30
DX: I87.332 Chronic venous hypertension (idiopathic) with ulcer and inflammation of left lower extremity (principal); I70.248 Atherosclerosis of native arteries of left leg with ulceration of other part of lower leg; L97.825 Non-pressure chronic ulcer of other part of left lower leg with muscle involvement without evidence of necrosis; I87.2 Venous insufficiency (chronic) (peripheral); Z72.0 Tobacco use; Z88.0 Allergy status to penicillin; Z88.1 Allergy status to other antibiotic agents; Z88.2 Allergy status to sulfonamides
CPT/HCPCS: 96365; J0692

== ENCOUNTER 2025-07-06 13:49 | Day surgery (SDC) | payer OTHER ==
[~2025-07-06 13:49] MED LIST changes: +Cefepime HCl 2,000 MG in NS 100 ML IV SCH
[2025-07-06 14:00] VITALS: BP 116/75
== END 2025-07-06 14:28 | disposition home or self-care (01) ==
LOC: ATC 13:49
DX: I87.332 Chronic venous hypertension (idiopathic) with ulcer and inflammation of left lower extremity (principal); L97.823 Non-pressure chronic ulcer of other part of left lower leg with necrosis of muscle; L97.822 Non-pressure chronic ulcer of other part of left lower leg with fat layer exposed; I70.248 Atherosclerosis of native arteries of left leg with ulceration of other part of lower leg; I87.2 Venous insufficiency (chronic) (peripheral); Z72.0 Tobacco use; Z88.0 Allergy status to penicillin; Z88.1 Allergy status to other antibiotic agents; Z88.8 Allergy status to other drugs, medicaments and biological substances; Z79.899 Other long term (current) drug therapy
CPT/HCPCS: 96365; J0692

== ENCOUNTER 2025-07-07 13:37 | Day surgery (SDC) | payer OTHER ==
[2025-07-07 13:40] VITALS: BP 124/74
== END 2025-07-07 14:18 | disposition home or self-care (01) ==
LOC: ATC 13:37
DX: I70.248 Atherosclerosis of native arteries of left leg with ulceration of other part of lower leg (principal); L97.825 Non-pressure chronic ulcer of other part of left lower leg with muscle involvement without evidence of necrosis; L97.822 Non-pressure chronic ulcer of other part of left lower leg with fat layer exposed; I87.332 Chronic venous hypertension (idiopathic) with ulcer and inflammation of left lower extremity; I87.2 Venous insufficiency (chronic) (peripheral); Z72.0 Tobacco use; Z88.0 Allergy status to penicillin; Z88.1 Allergy status to other antibiotic agents; Z88.8 Allergy status to other drugs, medicaments and biological substances; Z88.2 Allergy status to sulfonamides
CPT/HCPCS: 96365; J0692

== ENCOUNTER 2025-07-08 01:15 | Day surgery (SDC) | payer OTHER ==
[~2025-07-08 01:15] MED LIST changes: -Cefepime HCl 2,000 MG in NS 100 ML IV SCH
== END 2025-07-08 23:00 | disposition home or self-care (01) ==
LOC: HBO 01:15
DX: I74.3 Embolism and thrombosis of arteries of the lower extremities (principal); I87.332 Chronic venous hypertension (idiopathic) with ulcer and inflammation of left lower extremity; I70.248 Atherosclerosis of native arteries of left leg with ulceration of other part of lower leg; L97.825 Non-pressure chronic ulcer of other part of left lower leg with muscle involvement without evidence of necrosis; I87.2 Venous insufficiency (chronic) (peripheral); M06.9 Rheumatoid arthritis, unspecified; L97.822 Non-pressure chronic ulcer of other part of left lower leg with fat layer exposed; Z72.0 Tobacco use; Z88.0 Allergy status to penicillin
CPT/HCPCS: 96365; A6213; A9270; G0277; J0692

== ENCOUNTER 2025-07-08 01:28 | Day surgery (SDC) | payer OTHER ==
[2025-07-08] MEDS ORDERED: Lidocaine HCl 4% Cream 5 GM ONE (12:43)
== END 2025-07-08 23:00 | disposition home or self-care (01) ==
LOC: WOUND 01:28
DX: I70.248 Atherosclerosis of native arteries of left leg with ulceration of other part of lower leg (principal); L97.825 Non-pressure chronic ulcer of other part of left lower leg with muscle involvement without evidence of necrosis; I87.332 Chronic venous hypertension (idiopathic) with ulcer and inflammation of left lower extremity; I87.2 Venous insufficiency (chronic) (peripheral); M06.9 Rheumatoid arthritis, unspecified; I74.3 Embolism and thrombosis of arteries of the lower extremities; Z72.0 Tobacco use
CPT/HCPCS: A6213; A9270

== ENCOUNTER 2025-07-08 01:51 | Day surgery (SDC) | payer OTHER ==
[2025-07-08] MEDS ORDERED: Cefepime HCl 2,000 MG in NS 100 ML IV SCH (07:20)
[2025-07-08 13:37] VITALS: BP 108/75
== END 2025-07-08 14:21 | disposition home or self-care (01) ==
LOC: ATC 01:51
DX: I70.248 Atherosclerosis of native arteries of left leg with ulceration of other part of lower leg (principal); L97.825 Non-pressure chronic ulcer of other part of left lower leg with muscle involvement without evidence of necrosis; L97.822 Non-pressure chronic ulcer of other part of left lower leg with fat layer exposed; I87.332 Chronic venous hypertension (idiopathic) with ulcer and inflammation of left lower extremity; I87.2 Venous insufficiency (chronic) (peripheral); I74.3 Embolism and thrombosis of arteries of the lower extremities; Z72.0 Tobacco use; Z88.0 Allergy status to penicillin; Z88.2 Allergy status to sulfonamides; Z88.8 Allergy status to other drugs, medicaments and biological substances
CPT/HCPCS: 96365; J0692

== ENCOUNTER 2025-07-09 02:36 | Day surgery (SDC) | payer OTHER | END 2025-07-09 23:00 | disposition home or self-care (01) | LOC: HBO 02:36 | DX: I70.248 Atherosclerosis of native arteries of left leg with ulceration of other part of lower leg (principal); I87.332 Chronic venous hypertension (idiopathic) with ulcer and inflammation of left lower extremity; L97.825 Non-pressure chronic ulcer of other part of left lower leg with muscle involvement without evidence of necrosis; I87.2 Venous insufficiency (chronic) (peripheral); Z86.718 Personal history of other venous thrombosis and embolism; Z72.0 Tobacco use; Z88.0 Allergy status to penicillin; Z88.1 Allergy status to other antibiotic agents; Z88.2 Allergy status to sulfonamides; Z88.8 Allergy status to other drugs, medicaments and biological substances; Z79.01 Long term (current) use of anticoagulants; Z79.52 Long term (current) use of systemic steroids; Z79.899 Other long term (current) drug therapy | CPT/HCPCS: 96365; G0277; J0692 ==

== ENCOUNTER 2025-07-10 00:49 | Day surgery (SDC) | payer OTHER ==
[2025-07-10] MEDS ORDERED: Cefepime HCl 2,000 MG in NS 100 ML IV SCH (06:00)
[2025-07-10 07:50] VITALS: BP 120/71
[2025-07-10 16:35] VITALS: BP 135/89
== END 2025-07-10 17:15 | disposition home or self-care (01) ==
LOC: ATC 00:49
DX: I70.248 Atherosclerosis of native arteries of left leg with ulceration of other part of lower leg (principal); I87.332 Chronic venous hypertension (idiopathic) with ulcer and inflammation of left lower extremity; L97.825 Non-pressure chronic ulcer of other part of left lower leg with muscle involvement without evidence of necrosis; I87.2 Venous insufficiency (chronic) (peripheral); Z86.718 Personal history of other venous thrombosis and embolism; Z72.0 Tobacco use; Z79.01 Long term (current) use of anticoagulants; Z79.52 Long term (current) use of systemic steroids; Z79.899 Other long term (current) drug therapy; Z88.0 Allergy status to penicillin; Z88.1 Allergy status to other antibiotic agents; Z88.2 Allergy status to sulfonamides; Z88.8 Allergy status to other drugs, medicaments and biological substances
CPT/HCPCS: 96365; G0277; J0692

== ENCOUNTER 2025-07-10 00:56 | Day surgery (SDC) | payer OTHER | END 2025-07-10 23:00 | disposition home or self-care (01) | LOC: HBO 00:56 | DX: I70.248 Atherosclerosis of native arteries of left leg with ulceration of other part of lower leg (principal); I87.332 Chronic venous hypertension (idiopathic) with ulcer and inflammation of left lower extremity; L97.825 Non-pressure chronic ulcer of other part of left lower leg with muscle involvement without evidence of necrosis; I87.2 Venous insufficiency (chronic) (peripheral); Z86.718 Personal history of other venous thrombosis and embolism; Z72.0 Tobacco use; Z88.0 Allergy status to penicillin; Z88.1 Allergy status to other antibiotic agents; Z88.2 Allergy status to sulfonamides; Z88.8 Allergy status to other drugs, medicaments and biological substances; Z79.01 Long term (current) use of anticoagulants; Z79.52 Long term (current) use of systemic steroids; Z79.899 Other long term (current) drug therapy | CPT/HCPCS: 96365; G0277; J0692 ==

== ENCOUNTER 2025-07-11 02:05 | Day surgery (SDC) | payer OTHER | END 2025-07-11 17:25 | disposition home or self-care (01) | LOC: HBO 02:05 | DX: I74.3 Embolism and thrombosis of arteries of the lower extremities (principal) | CPT/HCPCS: G0277 ==

== ENCOUNTER 2025-07-11 03:48 | Day surgery (SDC) | payer OTHER ==
[2025-07-11] MEDS ORDERED: Cefepime HCl 2,000 MG in NS 100 ML IV SCH (06:00)
[2025-07-11 08:15] VITALS: BP 110/65
[2025-07-11 16:59] VITALS: BP 121/69
== END 2025-07-11 17:25 | disposition home or self-care (01) ==
LOC: ATC 03:48
DX: L97.825 Non-pressure chronic ulcer of other part of left lower leg with muscle involvement without evidence of necrosis (principal)
CPT/HCPCS: 96365; J0692

== ENCOUNTER 2025-07-12 00:50 | Day surgery (SDC) | payer OTHER ==
[2025-07-12] MEDS ORDERED: Cefepime HCl 2,000 MG in NS 100 ML IV SCH (06:00)
[2025-07-12 08:34] VITALS: BP 97/77
[2025-07-12 16:48] VITALS: BP 120/75
== END 2025-07-12 17:08 | disposition home or self-care (01) ==
LOC: ATC 00:50
DX: I70.248 Atherosclerosis of native arteries of left leg with ulceration of other part of lower leg (principal); I87.332 Chronic venous hypertension (idiopathic) with ulcer and inflammation of left lower extremity; L97.825 Non-pressure chronic ulcer of other part of left lower leg with muscle involvement without evidence of necrosis; I87.2 Venous insufficiency (chronic) (peripheral); Z86.718 Personal history of other venous thrombosis and embolism; Z72.0 Tobacco use; Z79.01 Long term (current) use of anticoagulants; Z79.52 Long term (current) use of systemic steroids; Z79.899 Other long term (current) drug therapy; Z88.0 Allergy status to penicillin; Z88.1 Allergy status to other antibiotic agents; Z88.2 Allergy status to sulfonamides; Z88.8 Allergy status to other drugs, medicaments and biological substances
CPT/HCPCS: 96365; J0692

== ENCOUNTER 2025-07-13 01:13 | Day surgery (SDC) | payer OTHER ==
[2025-07-13] MEDS ORDERED: Cefepime HCl 2,000 MG in NS 100 ML IV SCH (06:00)
[2025-07-13 08:00] VITALS: BP 111/71
[2025-07-13 16:30] VITALS: BP 118/72
== END 2025-07-13 16:52 | disposition home or self-care (01) ==
LOC: ATC 01:13
DX: I70.248 Atherosclerosis of native arteries of left leg with ulceration of other part of lower leg (principal); I87.332 Chronic venous hypertension (idiopathic) with ulcer and inflammation of left lower extremity; L97.825 Non-pressure chronic ulcer of other part of left lower leg with muscle involvement without evidence of necrosis; I87.2 Venous insufficiency (chronic) (peripheral); Z86.718 Personal history of other venous thrombosis and embolism; Z72.0 Tobacco use; Z79.01 Long term (current) use of anticoagulants; Z79.52 Long term (current) use of systemic steroids; Z79.899 Other long term (current) drug therapy; Z88.0 Allergy status to penicillin; Z88.1 Allergy status to other antibiotic agents; Z88.2 Allergy status to sulfonamides; Z88.8 Allergy status to other drugs, medicaments and biological substances
CPT/HCPCS: 96365; J0692

== ENCOUNTER 2025-07-14 01:15 | Day surgery (SDC) | payer OTHER | END 2025-07-14 23:00 | disposition home or self-care (01) | LOC: HBO 01:15 | DX: I74.3 Embolism and thrombosis of arteries of the lower extremities (principal); I87.332 Chronic venous hypertension (idiopathic) with ulcer and inflammation of left lower extremity; I70.248 Atherosclerosis of native arteries of left leg with ulceration of other part of lower leg; L97.825 Non-pressure chronic ulcer of other part of left lower leg with muscle involvement without evidence of necrosis; I87.2 Venous insufficiency (chronic) (peripheral); Z72.0 Tobacco use | CPT/HCPCS: G0277 ==

== ENCOUNTER 2025-07-15 04:39 | Day surgery (SDC) | payer OTHER | END 2025-07-15 23:01 | disposition home or self-care (01) | LOC: HBO 04:39 | DX: I74.3 Embolism and thrombosis of arteries of the lower extremities (principal); I70.248 Atherosclerosis of native arteries of left leg with ulceration of other part of lower leg; L97.825 Non-pressure chronic ulcer of other part of left lower leg with muscle involvement without evidence of necrosis; I87.332 Chronic venous hypertension (idiopathic) with ulcer and inflammation of left lower extremity; I87.2 Venous insufficiency (chronic) (peripheral); Z72.0 Tobacco use | CPT/HCPCS: A6213; A9270; G0277 ==

== ENCOUNTER 2025-07-15 04:53 | Day surgery (SDC) | payer OTHER ==
[2025-07-15] MEDS ORDERED: Lidocaine HCl 4% Cream 5 GM ONE (13:05)
== END 2025-07-15 23:01 | disposition home or self-care (01) ==
LOC: WOUND 04:53
DX: I87.332 Chronic venous hypertension (idiopathic) with ulcer and inflammation of left lower extremity (principal); I70.248 Atherosclerosis of native arteries of left leg with ulceration of other part of lower leg; L97.825 Non-pressure chronic ulcer of other part of left lower leg with muscle involvement without evidence of necrosis; I74.3 Embolism and thrombosis of arteries of the lower extremities; I87.2 Venous insufficiency (chronic) (peripheral); Z72.0 Tobacco use
CPT/HCPCS: A6213; A9270

== ENCOUNTER 2025-07-16 03:10 | Day surgery (SDC) | payer OTHER | END 2025-07-16 23:00 | disposition home or self-care (01) | LOC: HBO 03:10 | DX: I74.3 Embolism and thrombosis of arteries of the lower extremities (principal); I70.248 Atherosclerosis of native arteries of left leg with ulceration of other part of lower leg; L97.825 Non-pressure chronic ulcer of other part of left lower leg with muscle involvement without evidence of necrosis; I87.332 Chronic venous hypertension (idiopathic) with ulcer and inflammation of left lower extremity; I87.2 Venous insufficiency (chronic) (peripheral); Z72.0 Tobacco use | CPT/HCPCS: G0277 ==

== ENCOUNTER 2025-07-21 02:39 | Day surgery (SDC) | payer OTHER ==
[2025-07-21] MEDS ORDERED: Lidocaine HCl 4% Cream 5 GM ONE (12:59)
== END 2025-07-21 23:00 | disposition home or self-care (01) ==
LOC: WOUND 02:39
DX: I87.332 Chronic venous hypertension (idiopathic) with ulcer and inflammation of left lower extremity (principal); I70.248 Atherosclerosis of native arteries of left leg with ulceration of other part of lower leg; L97.825 Non-pressure chronic ulcer of other part of left lower leg with muscle involvement without evidence of necrosis; I74.3 Embolism and thrombosis of arteries of the lower extremities; I87.2 Venous insufficiency (chronic) (peripheral); Z72.0 Tobacco use
CPT/HCPCS: A6213; A9270

== ENCOUNTER 2025-07-21 02:44 | Day surgery (SDC) | payer OTHER | END 2025-07-21 23:00 | disposition home or self-care (01) | LOC: HBO 02:44 | DX: I87.332 Chronic venous hypertension (idiopathic) with ulcer and inflammation of left lower extremity (principal); L97.825 Non-pressure chronic ulcer of other part of left lower leg with muscle involvement without evidence of necrosis; I70.248 Atherosclerosis of native arteries of left leg with ulceration of other part of lower leg; I74.3 Embolism and thrombosis of arteries of the lower extremities; I87.2 Venous insufficiency (chronic) (peripheral); Z72.0 Tobacco use | CPT/HCPCS: A6213; A9270; G0277 ==

== ENCOUNTER 2025-07-24 00:16 | Day surgery (SDC) | payer OTHER | END 2025-07-24 23:00 | disposition home or self-care (01) | LOC: HBO 00:16 | DX: I87.332 Chronic venous hypertension (idiopathic) with ulcer and inflammation of left lower extremity (principal); L97.825 Non-pressure chronic ulcer of other part of left lower leg with muscle involvement without evidence of necrosis; I70.248 Atherosclerosis of native arteries of left leg with ulceration of other part of lower leg; I74.3 Embolism and thrombosis of arteries of the lower extremities; I87.2 Venous insufficiency (chronic) (peripheral); Z72.0 Tobacco use | CPT/HCPCS: G0277 ==

== ENCOUNTER 2025-07-28 01:00 | Day surgery (SDC) | payer OTHER | END 2025-07-28 22:00 | disposition home or self-care (01) | LOC: HBO 01:00 | DX: I74.3 Embolism and thrombosis of arteries of the lower extremities (principal); I70.248 Atherosclerosis of native arteries of left leg with ulceration of other part of lower leg; L97.825 Non-pressure chronic ulcer of other part of left lower leg with muscle involvement without evidence of necrosis; I87.332 Chronic venous hypertension (idiopathic) with ulcer and inflammation of left lower extremity; I87.2 Venous insufficiency (chronic) (peripheral); Z72.0 Tobacco use; M06.9 Rheumatoid arthritis, unspecified | CPT/HCPCS: A6213; A9270; G0277 ==

== ENCOUNTER 2025-07-29 02:33 | Day surgery (SDC) | payer OTHER | END 2025-07-29 23:00 | disposition home or self-care (01) | LOC: HBO 02:33 | DX: I74.3 Embolism and thrombosis of arteries of the lower extremities (principal); I70.248 Atherosclerosis of native arteries of left leg with ulceration of other part of lower leg; L97.825 Non-pressure chronic ulcer of other part of left lower leg with muscle involvement without evidence of necrosis; I87.332 Chronic venous hypertension (idiopathic) with ulcer and inflammation of left lower extremity; I87.2 Venous insufficiency (chronic) (peripheral); Z72.0 Tobacco use | CPT/HCPCS: G0277 ==

== ENCOUNTER 2025-07-31 02:19 | Day surgery (SDC) | payer OTHER | END 2025-07-31 23:00 | disposition home or self-care (01) | LOC: HBO 02:19 | DX: I74.3 Embolism and thrombosis of arteries of the lower extremities (principal); I70.248 Atherosclerosis of native arteries of left leg with ulceration of other part of lower leg; L97.825 Non-pressure chronic ulcer of other part of left lower leg with muscle involvement without evidence of necrosis; I87.332 Chronic venous hypertension (idiopathic) with ulcer and inflammation of left lower extremity; I87.2 Venous insufficiency (chronic) (peripheral); Z72.0 Tobacco use | CPT/HCPCS: G0277 ==

== ENCOUNTER 2025-08-01 00:31 | Day surgery (SDC) | payer OTHER | END 2025-08-01 23:00 | disposition home or self-care (01) | LOC: HBO 00:31 | DX: I74.3 Embolism and thrombosis of arteries of the lower extremities (principal); I70.248 Atherosclerosis of native arteries of left leg with ulceration of other part of lower leg; L97.825 Non-pressure chronic ulcer of other part of left lower leg with muscle involvement without evidence of necrosis; I87.332 Chronic venous hypertension (idiopathic) with ulcer and inflammation of left lower extremity; I87.2 Venous insufficiency (chronic) (peripheral); Z72.0 Tobacco use | CPT/HCPCS: G0277 ==

== ENCOUNTER 2025-08-04 01:23 | Day surgery (SDC) | payer OTHER ==
[2025-08-04] MEDS ORDERED: Lidocaine HCl 4% Cream 5 GM ONE (10:58)
== END 2025-08-04 23:00 | disposition home or self-care (01) ==
LOC: WOUND 01:23
DX: I70.248 Atherosclerosis of native arteries of left leg with ulceration of other part of lower leg (principal); L97.825 Non-pressure chronic ulcer of other part of left lower leg with muscle involvement without evidence of necrosis; I74.3 Embolism and thrombosis of arteries of the lower extremities; I87.332 Chronic venous hypertension (idiopathic) with ulcer and inflammation of left lower extremity; I87.2 Venous insufficiency (chronic) (peripheral); M06.9 Rheumatoid arthritis, unspecified; Z72.0 Tobacco use
CPT/HCPCS: A6213; A9270

== ENCOUNTER 2025-08-04 01:29 | Day surgery (SDC) | payer OTHER | END 2025-08-04 23:00 | disposition home or self-care (01) | LOC: HBO 01:29 | DX: I87.332 Chronic venous hypertension (idiopathic) with ulcer and inflammation of left lower extremity (principal); L97.825 Non-pressure chronic ulcer of other part of left lower leg with muscle involvement without evidence of necrosis; I70.248 Atherosclerosis of native arteries of left leg with ulceration of other part of lower leg; I74.3 Embolism and thrombosis of arteries of the lower extremities; I87.2 Venous insufficiency (chronic) (peripheral); Z72.0 Tobacco use | CPT/HCPCS: G0277 ==

== ENCOUNTER 2025-08-05 02:31 | Day surgery (SDC) | payer OTHER | END 2025-08-05 22:00 | disposition home or self-care (01) | LOC: HBO 02:31 | DX: I74.3 Embolism and thrombosis of arteries of the lower extremities (principal); I70.248 Atherosclerosis of native arteries of left leg with ulceration of other part of lower leg; L97.825 Non-pressure chronic ulcer of other part of left lower leg with muscle involvement without evidence of necrosis; I87.332 Chronic venous hypertension (idiopathic) with ulcer and inflammation of left lower extremity; I87.2 Venous insufficiency (chronic) (peripheral); Z72.0 Tobacco use | CPT/HCPCS: G0277 ==

== ENCOUNTER 2025-08-06 02:06 | Day surgery (SDC) | payer OTHER | END 2025-08-06 23:00 | disposition home or self-care (01) | LOC: HBO 02:06 | DX: I74.3 Embolism and thrombosis of arteries of the lower extremities (principal); I70.248 Atherosclerosis of native arteries of left leg with ulceration of other part of lower leg; L97.825 Non-pressure chronic ulcer of other part of left lower leg with muscle involvement without evidence of necrosis; I87.332 Chronic venous hypertension (idiopathic) with ulcer and inflammation of left lower extremity; I87.2 Venous insufficiency (chronic) (peripheral); Z72.0 Tobacco use | CPT/HCPCS: G0277 ==

== ENCOUNTER 2025-08-07 00:31 | Day surgery (SDC) | payer OTHER | END 2025-08-07 22:30 | disposition home or self-care (01) | LOC: HBO 00:31 | DX: I74.3 Embolism and thrombosis of arteries of the lower extremities (principal); I70.248 Atherosclerosis of native arteries of left leg with ulceration of other part of lower leg; L97.825 Non-pressure chronic ulcer of other part of left lower leg with muscle involvement without evidence of necrosis; I87.332 Chronic venous hypertension (idiopathic) with ulcer and inflammation of left lower extremity; I87.2 Venous insufficiency (chronic) (peripheral); Z72.0 Tobacco use | CPT/HCPCS: G0277 ==

== ENCOUNTER 2025-08-08 10:45 | Day surgery (SDC) | payer OTHER | END 2025-08-08 23:00 | disposition home or self-care (01) | LOC: HBO 10:45 | DX: I74.3 Embolism and thrombosis of arteries of the lower extremities (principal); I70.248 Atherosclerosis of native arteries of left leg with ulceration of other part of lower leg; L97.825 Non-pressure chronic ulcer of other part of left lower leg with muscle involvement without evidence of necrosis; I87.332 Chronic venous hypertension (idiopathic) with ulcer and inflammation of left lower extremity; I87.2 Venous insufficiency (chronic) (peripheral); Z72.0 Tobacco use | CPT/HCPCS: G0277 ==

== ENCOUNTER 2025-08-12 00:40 | Day surgery (SDC) | payer OTHER | END 2025-08-12 23:00 | disposition home or self-care (01) | LOC: HBO 00:40 | DX: I87.332 Chronic venous hypertension (idiopathic) with ulcer and inflammation of left lower extremity (principal); I70.248 Atherosclerosis of native arteries of left leg with ulceration of other part of lower leg; L97.825 Non-pressure chronic ulcer of other part of left lower leg with muscle involvement without evidence of necrosis; I74.3 Embolism and thrombosis of arteries of the lower extremities; I87.2 Venous insufficiency (chronic) (peripheral); Z72.0 Tobacco use | CPT/HCPCS: G0277 ==

== ENCOUNTER 2025-08-15 01:34 | Day surgery (SDC) | payer OTHER | END 2025-08-15 23:00 | disposition home or self-care (01) | LOC: HBO 01:34 | DX: I74.3 Embolism and thrombosis of arteries of the lower extremities (principal); I70.248 Atherosclerosis of native arteries of left leg with ulceration of other part of lower leg; L97.825 Non-pressure chronic ulcer of other part of left lower leg with muscle involvement without evidence of necrosis; I87.332 Chronic venous hypertension (idiopathic) with ulcer and inflammation of left lower extremity; I87.2 Venous insufficiency (chronic) (peripheral); Z72.0 Tobacco use | CPT/HCPCS: G0277 ==

== ENCOUNTER 2025-08-15 01:43 | Day surgery (SDC) | payer OTHER ==
[2025-08-15] MEDS ORDERED: Lidocaine HCl 4% Cream 5 GM ONE (12:52)
== END 2025-08-15 23:00 | disposition home or self-care (01) ==
LOC: WOUND 01:43
DX: I70.248 Atherosclerosis of native arteries of left leg with ulceration of other part of lower leg (principal); L97.825 Non-pressure chronic ulcer of other part of left lower leg with muscle involvement without evidence of necrosis; I87.332 Chronic venous hypertension (idiopathic) with ulcer and inflammation of left lower extremity; I74.3 Embolism and thrombosis of arteries of the lower extremities; I87.2 Venous insufficiency (chronic) (peripheral); Z72.0 Tobacco use
CPT/HCPCS: A6213; A9270; G0277

== ENCOUNTER 2025-08-19 01:49 | Day surgery (SDC) | payer OTHER | END 2025-08-19 23:00 | disposition home or self-care (01) | LOC: HBO 01:49 | DX: I74.3 Embolism and thrombosis of arteries of the lower extremities (principal); I70.248 Atherosclerosis of native arteries of left leg with ulceration of other part of lower leg; I87.312 Chronic venous hypertension (idiopathic) with ulcer of left lower extremity; I87.322 Chronic venous hypertension (idiopathic) with inflammation of left lower extremity; L97.825 Non-pressure chronic ulcer of other part of left lower leg with muscle involvement without evidence of necrosis; I87.2 Venous insufficiency (chronic) (peripheral) | CPT/HCPCS: G0277 ==

== ENCOUNTER 2025-08-20 00:24 | Day surgery (SDC) | payer OTHER | END 2025-08-20 23:00 | disposition home or self-care (01) | LOC: HBO 00:24 | DX: I74.3 Embolism and thrombosis of arteries of the lower extremities (principal); I70.248 Atherosclerosis of native arteries of left leg with ulceration of other part of lower leg; L97.825 Non-pressure chronic ulcer of other part of left lower leg with muscle involvement without evidence of necrosis; I87.332 Chronic venous hypertension (idiopathic) with ulcer and inflammation of left lower extremity; I87.2 Venous insufficiency (chronic) (peripheral); L97.822 Non-pressure chronic ulcer of other part of left lower leg with fat layer exposed; I87.312 Chronic venous hypertension (idiopathic) with ulcer of left lower extremity; Z72.0 Tobacco use | CPT/HCPCS: A6213; A9270; G0277 ==

== ENCOUNTER 2025-08-20 00:42 | Day surgery (SDC) | payer OTHER ==
[2025-08-20] MEDS ORDERED: Lidocaine HCl 4% Cream 5 GM ONE (14:20)
== END 2025-08-20 23:00 | disposition home or self-care (01) ==
LOC: WOUND 00:42
DX: I70.248 Atherosclerosis of native arteries of left leg with ulceration of other part of lower leg (principal); L97.822 Non-pressure chronic ulcer of other part of left lower leg with fat layer exposed; I87.312 Chronic venous hypertension (idiopathic) with ulcer of left lower extremity; I87.322 Chronic venous hypertension (idiopathic) with inflammation of left lower extremity; I74.3 Embolism and thrombosis of arteries of the lower extremities
CPT/HCPCS: A6213; A9270

== ENCOUNTER 2025-08-21 02:54 | Day surgery (SDC) | payer OTHER | END 2025-08-21 23:00 | disposition home or self-care (01) | LOC: HBO 02:54 | DX: I74.3 Embolism and thrombosis of arteries of the lower extremities (principal); I70.248 Atherosclerosis of native arteries of left leg with ulceration of other part of lower leg; L97.825 Non-pressure chronic ulcer of other part of left lower leg with muscle involvement without evidence of necrosis; I87.332 Chronic venous hypertension (idiopathic) with ulcer and inflammation of left lower extremity; I87.2 Venous insufficiency (chronic) (peripheral); Z72.0 Tobacco use | CPT/HCPCS: G0277 ==

== ENCOUNTER 2025-08-22 02:38 | Day surgery (SDC) | payer OTHER | END 2025-08-22 23:00 | disposition home or self-care (01) | LOC: HBO 02:38 | DX: I74.3 Embolism and thrombosis of arteries of the lower extremities (principal); I70.248 Atherosclerosis of native arteries of left leg with ulceration of other part of lower leg; L97.825 Non-pressure chronic ulcer of other part of left lower leg with muscle involvement without evidence of necrosis; I87.332 Chronic venous hypertension (idiopathic) with ulcer and inflammation of left lower extremity; I87.2 Venous insufficiency (chronic) (peripheral); Z72.0 Tobacco use | CPT/HCPCS: G0277 ==

== ENCOUNTER 2025-08-26 00:42 | Day surgery (SDC) | payer OTHER ==
[2025-08-26] MEDS ORDERED: Cefepime HCl 2,000 MG in NS 100 ML IV SCH (07:25)
[2025-08-26] MEDS ORDERED: Lidocaine HCl 4% Cream 5 GM ONE (12:50)
[2025-08-26 16:36] VITALS: BP 115/80
--- NOTE | 2025-08-26 18:43 | NUR ---
UNABLE TO OBTAIN IV ACCESS. TWO RNS ATTEMPTED MULTIPLE TIMES INCLUDING US GUIDED. PT C/O PAIN WITH FLUSH AFTER WHAT APPEARED TO BE A PATENT IV. PT DID NOT RECEIVE HER ABX INFUSION. SHE STS SHE WILL RETURN TOMORROW, WELL HYDRATED.
== END 2025-08-26 18:00 | disposition home or self-care (01) ==
LOC: ATC 00:42
DX: I70.248 Atherosclerosis of native arteries of left leg with ulceration of other part of lower leg (principal); L97.823 Non-pressure chronic ulcer of other part of left lower leg with necrosis of muscle; L97.822 Non-pressure chronic ulcer of other part of left lower leg with fat layer exposed; I87.312 Chronic venous hypertension (idiopathic) with ulcer of left lower extremity; I74.3 Embolism and thrombosis of arteries of the lower extremities; Z72.0 Tobacco use; I87.2 Venous insufficiency (chronic) (peripheral)
CPT/HCPCS: A6213; A9270; G0277

== ENCOUNTER 2025-08-26 01:04 | Day surgery (SDC) | payer OTHER | END 2025-08-26 23:00 | disposition home or self-care (01) | LOC: WOUND 01:04 | DX: I70.248 Atherosclerosis of native arteries of left leg with ulceration of other part of lower leg (principal); L97.822 Non-pressure chronic ulcer of other part of left lower leg with fat layer exposed; I87.312 Chronic venous hypertension (idiopathic) with ulcer of left lower extremity; I74.3 Embolism and thrombosis of arteries of the lower extremities; I87.2 Venous insufficiency (chronic) (peripheral) | CPT/HCPCS: A6213 ==

== ENCOUNTER 2025-08-27 02:17 | Day surgery (SDC) | payer OTHER ==
[2025-08-27] MEDS ORDERED: Cefepime HCl 2,000 MG in NS 100 ML IV SCH (06:00)
--- NOTE | 2025-08-27 08:40 | NUR ---
STOPPED CEFEPIME PT IS NOT TOLERATING IV ANTIBIOTICS. IV SITE IS PATENT AND RETURNING BLOOD BUT PT STATES "IT'S STINGING TOO MUCH, I CAN'T DO THIS". IV PUMP STOPPED. ADVISED PATIENT THAT WE WILL SPEAK WITH THE MD AND DISCUSS CHANGING THE ROUTE OF MEDICATION. SHE WILL NOT ALLOW A POWERGLIDE DUE TO HISTORY OF BLOOD CLOT AFTER POWERGLIDE INSERTION.
--- NOTE | 2025-08-27 17:14 | NUR ---
PT CANCELED PER PT'S MOM MARY, PT IS IN THE ER RIGHT NOW AND WILL NOT BE HERE FOR THIS AFTERNOON'S APPT. CEFEPIME HAS BEEN SWITCHED TO IM BUT FIRST DOSE HAS NOT BEEN GIVEN.
== END 2025-08-27 08:50 | disposition home or self-care (01) ==
LOC: ATC 02:17
DX: I70.248 Atherosclerosis of native arteries of left leg with ulceration of other part of lower leg (principal); L97.825 Non-pressure chronic ulcer of other part of left lower leg with muscle involvement without evidence of necrosis; I87.332 Chronic venous hypertension (idiopathic) with ulcer and inflammation of left lower extremity; I74.3 Embolism and thrombosis of arteries of the lower extremities; I87.2 Venous insufficiency (chronic) (peripheral); Z72.0 Tobacco use; Z88.0 Allergy status to penicillin; Z88.2 Allergy status to sulfonamides; Z88.1 Allergy status to other antibiotic agents; Z88.8 Allergy status to other drugs, medicaments and biological substances
CPT/HCPCS: 96374; J0692

== ENCOUNTER 2025-08-27 03:07 | Day surgery (SDC) | payer OTHER | END 2025-08-27 23:00 | disposition home or self-care (01) | LOC: HBO 03:07 | DX: I74.3 Embolism and thrombosis of arteries of the lower extremities (principal); I70.248 Atherosclerosis of native arteries of left leg with ulceration of other part of lower leg; I87.312 Chronic venous hypertension (idiopathic) with ulcer of left lower extremity | CPT/HCPCS: 82947; G0277 ==

== ENCOUNTER 2025-08-27 15:56 | Emergency (ER) | payer OTHER ==
[~2025-08-27] VITALS: Ht 170.2 cm; Wt 111.1 kg
[2025-08-27 17:34] LABS: BASOPHILS ABSOLUTE AUTO 0.02 K/mm3 (0.00-0.23); BASOPHILS PERCENT AUTO 0 % (0-2); EOSINOPHILS ABSOLUTE AUTO 0.24 K/mm3 (0.00-0.68); EOSINOPHILS PERCENT AUTO 2 % (0-6); Hematocrit 35.8 % (33.0-51.0); Hemoglobin 11.8 g/dL (11.5-16.0); IMMATURE GRAN ABSOLUTE AUTO 0.04 K/mm3 (0.00-0.10); IMMATURE GRAN PERCENT AUTO 0 % (0-1); LYMPHOCYTES ABSOLUTE AUTO 0.86 K/mm3 (0.84-5.20); LYMPHOCYTES PERCENT AUTO 7 % (21-46); MONOCYTES ABSOLUTE AUTO 0.42 K/mm3 (0.16-1.47); MONOCYTES PERCENT AUTO 3 % (4-13); Mean Corpuscular HGB Conc 33.0 g/dL (31.5-36.5); Mean Corpuscular Volume 88 fL (80-100); NEUTROPHILS ABSOLUTE AUTO 10.92 K/mm3 (1.96-9.15); NEUTROPHILS PERCENT AUTO 87 % (41-73); NRBC ABSOLUTE 0.00 K/mm3 (0.00-0.02); NRBC Auto 0.0 /100 WBC (0.0-0.2); Platelet Count 251 K/mm3 (150-400); RDW Coefficient Variation 13.9 % (11.7-14.2); RDW Standard Deviation 44.9 fL (35.1-46.3)
[2025-08-27 18:09] LABS: Alanine Aminotransfer (ALT/SGP 23.0 U/L (12-78); Albumin, Blood 2.9 g/dL (3.4-5.0); Albumin/Globulin Ratio 0.6 (0.8-1.8); Anion Gap 7.0 mmol/L (3-11); Aspartate Aminotrans (AST/SGOT 18.0 U/L (12-37); Bilirubin, Total 1.0 mg/dL (0.1-1.0); Blood Urea Nitrogen 12.0 mg/dL (8-24); CO2, Blood 23.0 mmol/L (21-32); Calcium, Blood 8.6 mg/dL (8.5-10.1); Chloride, Blood 106.0 mmol/L (98-108); Creatinine, Blood 0.7 mg/dL (0.40-1.00); Globulin, Blood 4.7 g/dL (2.2-4.0); Glucose, Blood 121.0 mg/dL (70-99); Potassium, Blood 4.0 mmol/L (3.5-5.5); Sodium, Blood 132.0 mmol/L (136-145); Total Protein, Blood 7.6 g/dL (6.4-8.2)
[2025-08-27 19:45] VITALS: BP 143/78
== END 2025-08-27 19:47 | disposition home or self-care (01) ==
LOC: ER 15:56
PROVIDERS: Physician Assistant
DX: R22.33 Localized swelling, mass and lump, upper limb, bilateral (principal); T36.1X5A Adverse effect of cephalosporins and other beta-lactam antibiotics, initial encounter; S81.802A Unspecified open wound, left lower leg, initial encounter; X58.XXXA Exposure to other specified factors, initial encounter
CPT/HCPCS: 80053; 85025; 99283

== ENCOUNTER 2025-08-29 00:14 | Day surgery (SDC) | payer OTHER | END 2025-08-29 23:00 | disposition home or self-care (01) | LOC: HBO 00:14 | DX: I74.3 Embolism and thrombosis of arteries of the lower extremities (principal); I70.248 Atherosclerosis of native arteries of left leg with ulceration of other part of lower leg; L97.825 Non-pressure chronic ulcer of other part of left lower leg with muscle involvement without evidence of necrosis; I87.332 Chronic venous hypertension (idiopathic) with ulcer and inflammation of left lower extremity; I87.2 Venous insufficiency (chronic) (peripheral); Z72.0 Tobacco use | CPT/HCPCS: G0277 ==

== ENCOUNTER 2025-09-01 01:03 | Day surgery (SDC) | payer OTHER | END 2025-09-01 23:00 | disposition home or self-care (01) | LOC: HBO 01:03 | DX: I74.3 Embolism and thrombosis of arteries of the lower extremities (principal); I70.248 Atherosclerosis of native arteries of left leg with ulceration of other part of lower leg; L97.825 Non-pressure chronic ulcer of other part of left lower leg with muscle involvement without evidence of necrosis; I87.332 Chronic venous hypertension (idiopathic) with ulcer and inflammation of left lower extremity; I87.2 Venous insufficiency (chronic) (peripheral); Z72.0 Tobacco use | CPT/HCPCS: G0277 ==

== ENCOUNTER 2025-09-02 01:34 | Day surgery (SDC) | payer OTHER ==
[2025-09-02] MEDS ORDERED: Lidocaine HCl 4% Cream 5 GM ONE (12:51)
== END 2025-09-02 22:51 | disposition home or self-care (01) ==
LOC: WOUND 01:34
DX: I70.248 Atherosclerosis of native arteries of left leg with ulceration of other part of lower leg (principal); L97.822 Non-pressure chronic ulcer of other part of left lower leg with fat layer exposed; I87.312 Chronic venous hypertension (idiopathic) with ulcer of left lower extremity
CPT/HCPCS: A6213; A9270

== ENCOUNTER 2025-09-03 00:40 | Day surgery (SDC) | payer OTHER | END 2025-09-03 23:00 | disposition home or self-care (01) | LOC: HBO 00:40 | DX: I74.3 Embolism and thrombosis of arteries of the lower extremities (principal); I70.248 Atherosclerosis of native arteries of left leg with ulceration of other part of lower leg; L97.825 Non-pressure chronic ulcer of other part of left lower leg with muscle involvement without evidence of necrosis; I87.332 Chronic venous hypertension (idiopathic) with ulcer and inflammation of left lower extremity; I87.2 Venous insufficiency (chronic) (peripheral); Z72.0 Tobacco use | CPT/HCPCS: G0277 ==

== ENCOUNTER 2025-09-05 00:57 | Day surgery (SDC) | payer OTHER | END 2025-09-05 23:00 | disposition home or self-care (01) | LOC: HBO 00:57 | DX: I74.3 Embolism and thrombosis of arteries of the lower extremities (principal) | CPT/HCPCS: G0277 ==

== ENCOUNTER 2025-09-08 00:34 | Day surgery (SDC) | payer OTHER | END 2025-09-08 23:00 | disposition home or self-care (01) | LOC: HBO 00:34 | DX: I74.3 Embolism and thrombosis of arteries of the lower extremities (principal); I70.248 Atherosclerosis of native arteries of left leg with ulceration of other part of lower leg; L97.825 Non-pressure chronic ulcer of other part of left lower leg with muscle involvement without evidence of necrosis; I87.332 Chronic venous hypertension (idiopathic) with ulcer and inflammation of left lower extremity; I87.2 Venous insufficiency (chronic) (peripheral); Z72.0 Tobacco use | CPT/HCPCS: G0277 ==

== ENCOUNTER 2025-09-09 00:49 | Day surgery (SDC) | payer OTHER | END 2025-09-09 23:00 | disposition home or self-care (01) | LOC: HBO 00:49 | DX: I74.3 Embolism and thrombosis of arteries of the lower extremities (principal); I73.9 Peripheral vascular disease, unspecified | CPT/HCPCS: G0277 ==

== ENCOUNTER 2025-09-09 00:52 | Day surgery (SDC) | payer OTHER ==
[2025-09-09] MEDS ORDERED: Lidocaine HCl 4% Cream 5 GM ONE (12:45)
== END 2025-09-09 23:00 | disposition home or self-care (01) ==
LOC: WOUND 00:52
DX: I70.248 Atherosclerosis of native arteries of left leg with ulceration of other part of lower leg (principal); L97.825 Non-pressure chronic ulcer of other part of left lower leg with muscle involvement without evidence of necrosis
CPT/HCPCS: A9270

== ENCOUNTER 2025-09-10 01:52 | Day surgery (SDC) | payer OTHER | END 2025-09-10 23:00 | disposition home or self-care (01) | LOC: WOUND 01:52 → HBO 01:52 → WOUND 10:16 → HBO 23:00 | DX: I70.248 Atherosclerosis of native arteries of left leg with ulceration of other part of lower leg (principal); I87.332 Chronic venous hypertension (idiopathic) with ulcer and inflammation of left lower extremity; L97.825 Non-pressure chronic ulcer of other part of left lower leg with muscle involvement without evidence of necrosis; I87.2 Venous insufficiency (chronic) (peripheral); Z72.0 Tobacco use; Z86.718 Personal history of other venous thrombosis and embolism | CPT/HCPCS: G0277 ==

== ENCOUNTER 2025-09-11 01:46 | Day surgery (SDC) | payer OTHER | END 2025-09-11 23:00 | disposition home or self-care (01) | LOC: HBO 01:46 | DX: I70.248 Atherosclerosis of native arteries of left leg with ulceration of other part of lower leg (principal); I87.332 Chronic venous hypertension (idiopathic) with ulcer and inflammation of left lower extremity; L97.825 Non-pressure chronic ulcer of other part of left lower leg with muscle involvement without evidence of necrosis; I87.2 Venous insufficiency (chronic) (peripheral); Z86.718 Personal history of other venous thrombosis and embolism; Z72.0 Tobacco use; Z88.0 Allergy status to penicillin; Z88.1 Allergy status to other antibiotic agents; Z88.2 Allergy status to sulfonamides; Z88.8 Allergy status to other drugs, medicaments and biological substances | CPT/HCPCS: G0277 ==

== ENCOUNTER 2025-09-16 00:25 | Day surgery (SDC) | payer OTHER ==
[2025-09-16] MEDS ORDERED: Lidocaine HCl 4% Cream 5 GM ONE (12:47)
== END 2025-09-16 22:53 | disposition home or self-care (01) ==
LOC: WOUND 00:25
DX: I70.248 Atherosclerosis of native arteries of left leg with ulceration of other part of lower leg (principal); L97.825 Non-pressure chronic ulcer of other part of left lower leg with muscle involvement without evidence of necrosis; I87.332 Chronic venous hypertension (idiopathic) with ulcer and inflammation of left lower extremity; I87.2 Venous insufficiency (chronic) (peripheral); I74.3 Embolism and thrombosis of arteries of the lower extremities; M06.9 Rheumatoid arthritis, unspecified; Z88.0 Allergy status to penicillin; Z88.1 Allergy status to other antibiotic agents; Z88.2 Allergy status to sulfonamides; Z88.8 Allergy status to other drugs, medicaments and biological substances; Z72.0 Tobacco use
CPT/HCPCS: 88305; A9270

== ENCOUNTER 2025-09-22 01:03 | Day surgery (SDC) | payer OTHER | END 2025-09-22 22:00 | disposition home or self-care (01) | LOC: WOUND 01:03 | DX: I70.248 Atherosclerosis of native arteries of left leg with ulceration of other part of lower leg (principal); L97.823 Non-pressure chronic ulcer of other part of left lower leg with necrosis of muscle ==

== ENCOUNTER → 2025-09-29 | Outpatient (CLI) | payer OTHER | END | disposition home or self-care (01) | LOC: LAB 14:15 → LAB SHORT 14:15 | DX: L08.9 Local infection of the skin and subcutaneous tissue, unspecified (principal) | CPT/HCPCS: 87070; 87077; 87186; 87205 ==

== ENCOUNTER → 2025-10-01 | Outpatient (CLI) | payer OTHER | LOC: LAB 15:34 → LAB SHORT 15:34 | PROVIDERS: Advanced Practice Midwife | DX: Z01.419 Encounter for gynecological examination (general) (routine) without abnormal findings (principal) | CPT/HCPCS: 87624; G0145 ==

== ENCOUNTER 2025-10-06 07:29 | Day surgery (SDC) | payer OTHER ==
[2025-10-06] MEDS ORDERED: Lidocaine HCl 4% Cream 5 GM ONE (14:42)
== END 2025-10-06 23:32 | disposition home or self-care (01) ==
LOC: WOUND 07:29
DX: I70.248 Atherosclerosis of native arteries of left leg with ulceration of other part of lower leg (principal); L97.825 Non-pressure chronic ulcer of other part of left lower leg with muscle involvement without evidence of necrosis; I87.332 Chronic venous hypertension (idiopathic) with ulcer and inflammation of left lower extremity; I87.2 Venous insufficiency (chronic) (peripheral); I74.3 Embolism and thrombosis of arteries of the lower extremities; M06.9 Rheumatoid arthritis, unspecified; Z72.0 Tobacco use
CPT/HCPCS: A9270

== ENCOUNTER 2025-10-13 02:44 | Day surgery (SDC) | payer OTHER ==
[2025-10-13] MEDS ORDERED: Lidocaine HCl 4% Cream 5 GM ONE (13:38)
== END 2025-10-13 23:00 | disposition home or self-care (01) ==
LOC: WOUND 02:44
DX: I70.248 Atherosclerosis of native arteries of left leg with ulceration of other part of lower leg (principal); L97.825 Non-pressure chronic ulcer of other part of left lower leg with muscle involvement without evidence of necrosis
CPT/HCPCS: A9270